=== PATIENT | male | born 1940 | race Caucasian/White ===

== ENCOUNTER → 2016-12-13 | Outpatient (CLI) | payer MEDICARE, BC ==
[2016-12-13 09:02] LABS: ALT 40 U/L (21-72); AST 34 U/L (17-59); Alkaline Phosphatase 89 U/L (38-126); Anion Gap 11 mmol/L; Blood Urea Nitrogen 19 mg/dL (9-20); Calcium 9.1 mg/dL (8.4-10.2); Carbon Dioxide 23 mmol/L (22-30); Chloride 110 mmol/L (98-107); Cholesterol 138 mg/dL (<200); Glucose 94 mg/dL (74-99); HDL Cholesterol 50 mg/dL (40-60); Non-African American GFR(MDRD) >60 (>60 ml/min/1.73 sqM); Potassium 4.7 mmol/L (3.5-5.1); Sodium 144 mmol/L (137-145); Total Bilirubin 0.9 mg/dL (0.2-1.3); Triglycerides 79 mg/dL (<150)
== END | disposition home or self-care (01) ==
LOC: LABWHC1 07:41
PROVIDERS: ATTEND Internal Medicine Cardiovascular Disease
DX: E78.5 Hyperlipidemia, unspecified (principal); I10 Essential (primary) hypertension
CPT/HCPCS: 36415; 80053; 80061

== ENCOUNTER → 2017-12-11 | Outpatient (CLI) | payer MEDICARE, BC ==
--- NOTE | 2017-12-11 15:45 | CT ---
EXAMINATION TYPE: CT chest wo/w con DATE OF EXAM: 12/11/2017 COMPARISON: NONE HISTORY: Other disorder of lung per order. (J 98.4) CT DLP: 1045 mGycm Automated exposure control for dose reduction was used. CONTRAST: CT scan of the chest is performed without and with IV Contrast, patient injected with 100 ml mL of Is ovue 300. FINDINGS: LUNGS: Moderate underlying emphysematous change is present most prominent in the apices. There is mil d to moderate pleural/parenchymal scarring bilaterally. There is some additional linear scarring cent rally in the right midlung. There is calcified 7 mm nodule or granuloma in the right lower lobe axial image 44. There is elevated left hemidiaphragm. There is bibasilar linear scarring and/or atelectasi s. No suspicious consolidation or groundglass opacity is seen. No pleural effusion or pneumothorax is noted. No suspicious noncalcified greater than 5 mm parenchymal nodule or mass is present. MEDIASTINUM: There are no greater than 1 cm noncalcified hilar or mediastinal lymph nodes. There are prominent but calcified right hilar and to lesser degree subcarinal lymph nodes. Coronary artery morgan cification is seen which is noted marker for coronary artery disease. Epicardial pacer wires are note d. No cardiomegaly or pericardial effusion is seen. OTHER: Scattered calcifications throughout the liver and more prominent in the spleen are present. L haris and CT findings are consistent with product of old granulomatous disease. There is nodular thicke bernadine to the left adrenal gland. Noncontrast CT shows Hounsfield units less than 10 consistent with li pid rich benign adenoma. Underlying S-shaped scoliosis is present. There is moderate multilevel spurr ing in the spine. IMPRESSION: Chronic emphysematous and other chronic changes without suspicious acute pulmonary proce ss.
== END | disposition home or self-care (01) ==
LOC: RADCTMAIN 12:08
PROVIDERS: ATTEND Internal Medicine Geriatric Medicine
DX: J43.9 Emphysema, unspecified (principal)
CPT/HCPCS: 71270; Q9967

== ENCOUNTER → 2019-03-07 | Outpatient (CLI) | payer MEDICARE, BC ==
--- NOTE | 2019-03-07 10:02 | MR ---
EXAMINATION TYPE: MR brain wo/w con DATE OF EXAM: 03/07/2019 COMPARISON: None HISTORY: CVA TECHNIQUE: Multiplanar, multisequence images of the brain and brainstem is performed without and with IV contras t, utilizing 7.5 mL intravenous Gadavist . FINDINGS: Diffusion weighted images demonstrate no evidence of a recent infarct or other diffusion ab normality. Osseous abnormal signal the sukhwinder suggestive of remote ischemia. Multifocal areas of abnormal signal a re seen involving the basal ganglia, thalamus and white matter which is in a nonspecific distribution pattern but most typical remote ischemic change. Midline structures demonstrate normal morphology. The craniocervical junction appears within normal limits. Post contrast images demonstrate no abnormal enhancement. The dural venous sinuses appear pa tent. A tiny venous angioma in the right frontal lobe incidentally noted. Changes of mild chronic sinusitis. Globes are intact. Mastoid air cells are clear. No cerebellopontin e angle mass. IMPRESSION: 1. Degenerative mild nonspecific white matter changes most typical remote ischemia. 2. Remote lacunar infarcts involving the sukhwinder, basal ganglia and thalamus. 3. No evidence of acute ischemia or mass effect.
== END | disposition home or self-care (01) ==
LOC: RADMRIMAIN 08:39
PROVIDERS: ATTEND Psychiatry & Neurology Neurology
DX: R90.89 Other abnormal findings on diagnostic imaging of central nervous system (principal)
CPT/HCPCS: 70553; A9585

== ENCOUNTER → 2019-04-17 | Outpatient (CLI) | payer MEDICARE, BC ==
--- NOTE | 2019-04-17 19:04 | NM ---
EXAMINATION TYPE: NM bone scan whole body DATE OF EXAM: 04/17/2019 COMPARISON: NONE HISTORY: C 67.9 Delayed whole-body scanning was performed following the injection of 26.8 mCi Tc 99m MDP. Images wer e acquired 3 hours post injection. FINDINGS: There is some focal uptake in the anterior left sixth rib region suggestive for underlying fracture. Metastatic lesion is within the differential. Within the left calvarium temporal region there is a focal area of increased uptake best visualized o n the spot images suspicious for metastatic lesion. Some uptake within the left hand likely is related to degenerative change. IMPRESSION: 1. There may be some focal uptake within the left temporal region as well as a anterior left sixth ri b. Metastasis should be considered. 2. Rib uptake may also be related to focal trauma.
== END | disposition home or self-care (01) ==
LOC: RADNMMAIN 10:00
PROVIDERS: ATTEND Urology
DX: C67.9 Malignant neoplasm of bladder, unspecified (principal); R93.7 Abnormal findings on diagnostic imaging of other parts of musculoskeletal system; Z88.7 Allergy status to serum and vaccine
CPT/HCPCS: 78306; A9503

== ENCOUNTER → 2019-05-20 | Outpatient (CLI) | payer MEDICARE, BC ==
--- NOTE | 2019-05-20 15:11 | XR ---
EXAMINATION TYPE: XR ribs LT DATE OF EXAM: 05/20/2019 COMPARISON: 04/17/2019 HISTORY: C 67.9 TECHNIQUE: 2 view left ribs. FINDINGS: No acute fractures are evident. No suspicious expansile lesions or erosions are evident. No sclerotic lesions are evident. Some costochondral cartilage calcification is present. No pneumothorax is evident. IMPRESSION: 1. Normal left ribs. 2. No suspicious abnormality to correlate with the anterior left external finding from bone scan. Thi s suggests trauma likely within the differential at this location.
--- NOTE | 2019-05-20 15:21 | XR ---
EXAMINATION TYPE: XR skull limited DATE OF EXAM: 05/20/2019 COMPARISON: Bone scan 04/17/2019 HISTORY: C 67.9 bladder cancer TECHNIQUE: 2 view skull FINDINGS: Skull is examined in AP and lateral projections. Subtle patchy diminished density is present through the left calvarium corresponding to the bone scan . Findings could be related to a metastatic lesion. A well-defined lytic lesion is not identified. Remainder the calvarium appears intact. IMPRESSION: 1. Ill-defined moth-eaten appearance to the left calvarium could be related to a metastatic lesion i dentified on bone scan.
== END | disposition home or self-care (01) ==
LOC: RADXRMAIN 11:24
PROVIDERS: ATTEND Urology
DX: C67.9 Malignant neoplasm of bladder, unspecified (principal); Z88.7 Allergy status to serum and vaccine
CPT/HCPCS: 70250

== ENCOUNTER → 2019-06-13 | Outpatient (CLI) | payer MEDICARE, BC ==
--- NOTE | 2019-06-15 11:34 | PE ---
Nuclear medicine PET/CT HISTORY: Bladder carcinoma, initial Patient received 11.4 mCi F-18 FDG intravenously in delayed scanning was performed from the skull bas e to the mid thighs. Localization and attenuation correction CT scan was performed. Correlation to bone scan dated 04/17/2019, CT urogram 02/27/2016 Neck and chest: There is no evident cervical, supraclavicular, mediastinal, axillary, or hilar adenop athy. Calcified nodes in the subcarinal, right hilar location are present. There are coronary artery calcifications present. Calcified nodule present in the right lower lobe. There is some White leads i n the right lower chest extending to the inferior cardiac margin. No pleural or pericardial effusion. No suspicious hypermetabolic uptake. ABDOMEN: Multiple calcifications within the liver and spleen suggesting old granulomatous disease. De pendent high density foci in the gallbladder compatible with stones. No retroperitoneal adenopathy. I nfrarenal abdominal aortic aneurysm with stent graft placement is noted, the aneurysm measures approx imately 5.3 cm in greatest dimension, slightly enlarged compared to prior CT urogram of 02/27/2016 when it measured I centimeters. Suspect there may be hydroceles in the scrotum. Postop changes are noted to the right groin. Bladder uptake may obscure underlying detail. Osseous structures: The proximal right humerus shows abnormal increased uptake with some questionable sclerosis, SUV 4.2, uptake appears somewhat increased compared to prior bone scan. Distal clavicle o n the right also shows some mild increased uptake, SUV 2.4. Facet arthropathy change, degenerative di sc changes in the lower spine. There is a focus of sclerosis present within the right iliac wing whic h may represent bone island, no associated hypermetabolic uptake. IMPRESSION: Proximal humerus abnormal uptake is suspicious and could possibly represent metastatic fo cus.
== END | disposition home or self-care (01) ==
LOC: RADPETMAIN 11:53
PROVIDERS: ATTEND Internal Medicine Hematology & Oncology
DX: C67.8 Malignant neoplasm of overlapping sites of bladder (principal)
CPT/HCPCS: 78815; A9552

== ENCOUNTER → 2019-06-18 | Outpatient (CLI) | payer MEDICARE, BC ==
--- NOTE | 2019-06-19 04:08 | MR ---
EXAMINATION TYPE: MR humerus RT w/wo con DATE OF EXAM: 06/18/2019 COMPARISON: HISTORY: Bladder cancer, abnormal PET CT CONTRAST: Standard multiplanar, multisequence MRI departmental protocol utilizing 8 mL intravenous Gadavist jacinda olinium contrast. FINDINGS: There is a 4 x 3.7 cm area of abnormal decreased signal on the T1 images involving the prox imal humeral metaphysis. I do not see a soft tissue mass. The cortex appears intact. There is mild pa thologic enhancement. I see no fracture line. The glenohumeral joint is intact. Biceps tendon is inta ct. The subscapularis tendon is intact. Visualized scapula is intact. IMPRESSION: Large lesion in the proximal humeral metaphysis with some enhancement that is consistent with metasta tic disease. No change in size compared to the PET CT scan of 06/13/2019. No evidence of adjacent sof t tissue mass.
== END | disposition home or self-care (01) ==
LOC: RADMRIMAIN 15:09
PROVIDERS: ATTEND Internal Medicine Hematology & Oncology
DX: C67.9 Malignant neoplasm of bladder, unspecified (principal); M89.9 Disorder of bone, unspecified
CPT/HCPCS: 73220; A9585

== ENCOUNTER → 2019-09-14 | Outpatient (CLI) | payer MEDICARE, BC ==
--- NOTE | 2019-09-14 16:08 | CT ---
EXAMINATION TYPE: CT abdomen pelvis w con DATE OF EXAM: 09/14/2019 COMPARISON: 12/11/2017 HISTORY: bladder ca followup CT DLP: 791 mGycm CONTRAST: CT scan of the abdomen and pelvis is performed with Oral Contrast and with IV Contrast, patient injec gina with 100 mL of Isovue 300. FINDINGS: LUNG BASES-: No visible nodule. No infiltrate. LIVER/GB: Multiple small gallstones noted. No space occupying hepatic lesion. Biliary tree is of n ormal caliber. PANCREAS: No inflammation. No distinct mass. SPLEEN: No splenic enlargement. No lesion seen. Splenic granulomas identified. ADRENALS: No nodule. Adrenal glandular thickening again noted. KIDNEYS/BLADDER: No hydronephrosis. No nephrolithiasis. No distinct renal mass. Urinary bladder g rossly unremarkable. BOWEL: Normal appendix. Normal bowel caliber. No inflammation. GENITAL ORGANS: No gross abnormality. LYMPH NODES: No greater than 1cm abdominal or pelvic lymph nodes are appreciated. AORTA: Aortic stent graft in place. No evidence for endoleak. [place] aneurysm measures 4.2 cm AP dime nsion. OSSEOUS STRUCTURES: Severe degenerative changes lumbar spine with vacuum disc seen. OTHER: No significant additional abnormality is seen. IMPRESSION: 1. No CT evidence to suggest metastatic disease to the abdomen or pelvis at this time.
== END | disposition home or self-care (01) ==
LOC: RADCTMAIN 13:45
PROVIDERS: ATTEND Internal Medicine Hematology & Oncology
DX: C67.9 Malignant neoplasm of bladder, unspecified (principal)
CPT/HCPCS: 82565; 84520; 74177; 36415; Q9967

== ENCOUNTER → 2019-11-06 | Outpatient (CLI) | payer MEDICARE, BC ==
--- NOTE | 2019-11-06 13:14 | US ---
EXAMINATION TYPE: US venous doppler duplex LE RT DATE OF EXAM: 11/06/2019 12:49 PM COMPARISON: NONE CLINICAL HISTORY: R22.41 Swelling of right lower limb. Pain right leg SIDE PERFORMED: right TECHNIQUE: The lower extremity deep venous system is examined utilizing real time linear array sonog manasa with graded compression, doppler sonography and color-flow sonography. VESSELS IMAGED: External Iliac Vein (EIV) Common Femoral Vein Deep Femoral Vein Greater Saphenous Vein * Femoral Vein Popliteal Vein Small Saphenous Vein * Proximal Calf Veins (* superficial vessels) Grayscale, color doppler, spectral doppler imaging performed of the deep veins of the right lower ext remity. There is normal flow, compressibility, vascular waveforms. Right Leg: No evidence of DVT as visualized IMPRESSION: No sonographic evidence of deep venous thrombosis within the right lower extremity.
--- NOTE | 2019-11-06 13:26 | XR ---
EXAMINATION TYPE: XR chest 2V DATE OF EXAM: 11/06/2019 COMPARISON: Left ribs of 05/20/2019 and PET/CT dated 06/13/2019 HISTORY: Cough and lower extremity swelling TECHNIQUE: Frontal and lateral views of the chest are obtained. FINDINGS: Pulmonary hyperinflation is present throughout the lungs. Linear strand-like infrahilar de nsities along the vasculature likely relate to mild dependent atelectasis also seen on the lateral vi ew. Calcified granuloma is seen in the right lower lung. Cardiomediastinal silhouette is within luh l limits. Minimal degenerative change of the thoracic spine. IMPRESSION: Bibasilar linear airspace seen on the lateral and frontal view likely relates to atelect asis however developing pneumonia is possible in the appropriate clinical setting. Underlying COPD.
== END | disposition home or self-care (01) ==
LOC: RADUSWWP 12:21
PROVIDERS: ATTEND Internal Medicine Hematology & Oncology
DX: J44.9 Chronic obstructive pulmonary disease, unspecified (principal); R22.41 Localized swelling, mass and lump, right lower limb; C67.9 Malignant neoplasm of bladder, unspecified
CPT/HCPCS: 71046

== ENCOUNTER → 2019-12-14 | Outpatient (CLI) | payer MEDICARE, BC | END | disposition home or self-care (01) | LOC: LABWHC1 11:27 | PROVIDERS: ATTEND Internal Medicine Critical Care Medicine | DX: U07.1 COVID-19 (principal) | CPT/HCPCS: 87635 ==

== ENCOUNTER → 2019-12-16 | Day surgery (SDC) | payer MEDICARE, BC ==
[2019-12-15 14:20] VITALS: BMI 22.4
[~2019-12-16] MED LIST: ALBUTEROL NEB (CONC) 2.5 MG/0.5 ML INHALATION ONE; DEXAMETHASONE SOD PHOSPHATE 10 MG/ML 1 ML VIAL IV ONE; IV FLUID CONTINUATION 1,000 ML IV ONE; LACTATED RINGERS 1,000 ML IV SCH; LIDOCAINE 1% INJ 10MG/ML (20 ML MDV) ONE; LIDOCAINE 2% (PF) 20 MG/ML 5 ML VIAL INHALATION ONE; LIDOCAINE VISCOUS 300 MG/15 ML CUP MUCOUS MEM ONE; MIDAZOLAM 2 MG/2 ML VIAL ONE; ONDANSETRON 4 MG/2 ML VIAL IVP ONE; PROPOFOL 10 MG/ML 20 ML VIAL IV ONE; SODIUM CHLORIDE 0.9% 1,000 ML IV SCH; SODIUM CHLORIDE 0.9% 500 ML 500 ML IV ONE; SUCCINYLCHOLINE CHLORIDE 100 MG/5 ML SYR IV ONE; fentaNYL (PF) 50 MCG/ML 2 ML AMP ONE
--- NOTE | 2019-12-16 11:55 | CT ---
EXAMINATION TYPE: CT Chest tara Atkinson Protocol DATE OF EXAM: 12/16/2019 COMPARISON: Outside CT dated December 08, 2019. Prior PET/CT June 13, 2019 HISTORY: Navigational bronch. CT DLP: 687 mGycm Automated exposure control for dose reduction was used. FINDINGS: Exam is for bronchoscopy planning and not for diagnostic purposes. Background moderate to advanced un derlying emphysematous change redemonstrated along with elevated left hemidiaphragm. New suspicious m ass or masslike consolidation in the right midlung anteriorly is redemonstrated. Incidental roughly 1 cm calcified nodule or benign granuloma right lower lobe axial image 50 series 6 with calcified righ t hilar adenopathy. Anterior percutaneous epicardial pacer wires. Partial visualization of aortobiili ac stent graft. Punctate calcifications throughout the spleen and to lesser degree liver. IMPRESSION: As above.
--- NOTE | 2019-12-16 14:29 | P.PCN ---
Date of Procedure: 12/16/19 Preoperative Diagnosis: RML/RUL mass/atelectasis Postoperative Diagnosis: Right middle lobe bronchus obstruction Procedure(s) Performed: Navigational Flexible bronchoscopy, airway inspection, transbronchial biopsies of the right upper lobe, transbronchial biopsies of the right middle lobe, transbronchial brushings of the right middle lobe, bronchoalveolar lavage of the right upper lobe and the right middle lobe, transbronchial needle aspirate of paratracheal lymph node Anesthesia: CAROLINEA Surgeon: Sheila Chau Estimated Blood Loss (ml): 5 Pathology: other Condition: stable Disposition: same day Operative Findings: This procedure was done under general anesthesia. The patient was intubated and placed on a mechanical ventilator by DELIVERY PROFESSIONAL. The procedure was done while the patient is adequately oxygenated and ventilated. Note that this is a navigational bronchoscopy. A CAT scan of the chest was done using the [facility] protocol and the CAT scan images was uploaded system where the right upper lobe and the right middle lobe lesions were adequately identified at a target lesions were marked and the mapping was performed. This was done preoperatively. All this information was uploaded into the [facility] navigational ptower. The V pad was applied to the patient's chest. After achieving adequate anesthesia, the flexible bronchoscope was inserted to the endotracheal tube and was transferred to the lower trachea. The distal tip of the orotracheal tube was seen about 2 cm above the viktor. The viktor was sharp in the midline. Airway inspection was done. Examination of the right and occluded right mainstem bronchus was patent. The flexible bronchoscope was then taken to the right upper lobe bronchus where that the segment of the right upper lobe bronchus was visualized including the apical anterior and the posterior segment. Following that, the bronchoscope was moved to the bronchus intermedius. The right middle lobe bronchus was extrinsically compressed and I was unable to insert my bronchoscope into the right middle lobe bronchus. There could have been some irregularities at the orifice and right lower lobe bronchus was patent and the 5 different segments of the right lower lobe including the medial basilar, the anterior, lateral, posterior and superior segments were all patent and within normal limits. The bronchoscope was then moved to the left side and exertion left-sided low the left mainstem bronchus, left upper lobe bronchus, left lower lobe bronchus and all of these airways were patent and within normal limits. The bronchoscope was then moved to the main trachea and other navigational guidance, transbronchial needle aspirate of the paratracheal lymph node was done using a 19-gauge cytology needle. Several passes were obtained. Following that, the bronchoscope was moved to the right upper lobe and transbronchial biopsies of the right upper lobe mass/consolidation was done under navigational guidance. A bronchoalveolar lavage of the right upper lobe with elevated total of 60 the fluid was infused and 20 mL of bloody aspirate was obtained. The bronchoscope was then moved to the right middle lobe bronchus and transbronchial biopsies of the right middle lobe bronchus consolidation/lesion was done under navigational guidance. I also performed a bronchoalveolar lavage of the right middle lobe and using 60 mL and aspirating 20 mL from the right middle lobe. Ultimately I performed also in the bronchial brushings of the right middle lobe under navigational guidance. The patient tolerated the procedure well. At the completion of the procedure, the respiratory secretions were all suctioned out. The patient was extubated and transferred to recovery in stable condition. The chest x-ray will be done to rule out pneumothorax. The patient will be discharged home once cleared by anesthesia. I will follow-up on the results and contact the patient back to discuss the results of the findings.
[2019-12-16 14:47] VITALS: TEMP 97.5
--- NOTE | 2019-12-16 14:58 | XR ---
EXAMINATION TYPE: XR chest 1V DATE OF EXAM: 12/16/2019 COMPARISON: Chest x-ray November 06, 2019. CT chest December 11, 2017. Same day planning CT. HISTORY: Bronchoscopy with right lung biopsy. TECHNIQUE: Single frontal view of the chest is obtained. FINDINGS: There is chronic emphysematous and parenchymal change bilaterally with right midlung massl tito consolidation redemonstrated. No right-sided pneumothorax after bronchoscopy and sampling. Cardia c silhouette size stable and upper limits of normal with atherosclerotic aorta. Calcified granuloma r ight lung base redemonstrated. Osseous structures redemonstrated demineralized. IMPRESSION: No pneumothorax after bronchoscopy and right lung sampling.
[2019-12-16 15:06] VITALS: RESP 17
[2019-12-16 15:12] VITALS: BP 106/59; PULSE 69
== END ==
LOC: ORWHC2ENDO 10:25
PROVIDERS: ATTEND Internal Medicine Critical Care Medicine
DX: J40 Bronchitis, not specified as acute or chronic (principal); J84.10 Pulmonary fibrosis, unspecified; E78.5 Hyperlipidemia, unspecified; F03.90 Unspecified dementia, unspecified severity, without behavioral disturbance, psychotic disturbance, mood disturbance, and anxiety; R41.3 Other amnesia; Z98.890 Other specified postprocedural states; I10 Essential (primary) hypertension; Z92.21 Personal history of antineoplastic chemotherapy; Z85.51 Personal history of malignant neoplasm of bladder; Z95.1 Presence of aortocoronary bypass graft; R60.0 Localized edema; Z80.41 Family history of malignant neoplasm of ovary; Z87.891 Personal history of nicotine dependence; Z79.899 Other long term (current) drug therapy; Z91.09 Other allergy status, other than to drugs and biological substances
CPT/HCPCS: 87798 ×3; 87496; 87498; 87529; 88104; 88108; 88305; 88173; 87252; 87502; 87634; 87070; 87205; 87116; 87102; 87206; 71045; 71250; 31628; 31629; 31632; 31623; 31624; 31627; J2250; J1100; J2405; J2001; J3010; J0330; J2704; 31625; 31633

== ENCOUNTER 2019-12-20 12:24 | Inpatient (IN) | payer MEDICARE, BC ==
[2019-12-20] MEDS ORDERED: ACETAMINOPHEN TAB 325 MG TAB PO STA (13:12)
--- NOTE | 2019-12-20 13:16 | XR ---
EXAMINATION TYPE: XR chest 1V portable DATE OF EXAM: 12/20/2019 COMPARISON: 12/16/2019 HISTORY: Shortness of breath and cough TECHNIQUE: Single frontal view of the chest is obtained. FINDINGS: Worsening of the confluent right suprahilar, right perihilar and right infrahilar opacity does not extend to the right lung periphery. Left lung remains overall well aerated. Chronic emphysem atous changes are again noted. Diffuse osseous demineralization is seen. Overall stable size of the c ardiomediastinal silhouette. IMPRESSION: Worsening large right-sided opacity, pneumonia versus neoplasm. Correlate with recent br onchoscopy results.
[2019-12-20 13:19] LABS: Basophils % (A) 0 %; Eosinophils % (A) 0 %; HCT 35.3 % (39.0-53.0); HGB 11.3 gm/dL (13.0-17.5); Hypochromasia Slight; Lymphocytes # (A) 0.4 k/uL (1.0-4.8); Lymphocytes % (A) 2 %; MCH 30.4 pg (25.0-35.0); MCHC 31.9 g/dL (31.0-37.0); MCV 95.4 fL (80.0-100.0); Mean Platelet Volume 8.4; Monocytes # (A) 0.8 k/uL (0-1.0); Monocytes % (A) 4 %; Neutrophils # (A) 22.6 k/uL (1.3-7.7); Neutrophils % (A) 94 %; Platelet Count 384 k/uL (150-450); RDW 14.4 % (11.5-15.5)
[2019-12-20 13:25] LABS: ALT 173 U/L (4-49); AST 119 U/L (17-59); African American GFR (CKD) >90 (>60 ml/min/1.73 sqM); Albumin 2.7 g/dL (3.5-5.0); Alkaline Phosphatase 291 U/L (38-126); Anion Gap 10 mmol/L; Blood Urea Nitrogen 24 mg/dL (9-20); Calcium 7.9 mg/dL (8.4-10.2); Carbon Dioxide 24 mmol/L (22-30); Chloride 103 mmol/L (98-107); Glucose 133 mg/dL (74-99); Non-African American GFR(CKD) 84 (>60 ml/min/1.73 sqM); Potassium 4.3 mmol/L (3.5-5.1); Sodium 137 mmol/L (137-145); Total Bilirubin 0.7 mg/dL (0.2-1.3); Total Protein 5.6 g/dL (6.3-8.2)
--- NOTE | 2019-12-20 13:30 | ED ---
SOB HPI - General Chief Complaint: Shortness of Breath Stated Complaint: Weakness,cough-post op Time Seen by Provider: 12/20/19 12:30 Source: patient Mode of arrival: wheelchair Limitations: no limitations - History of Present Illness Initial Comments: The patient is a 79-year-old male past medical history of dementia presents emergency room with reported shortness of breath. The patient was found to have a lung mass which was biopsied on Saturday by Dr. Chau. reports that since then the patient has been extremely weak and more short of breath. She was unable to ambulate today. She also reports to dementia however the patient is confused. Denies hemoptysis but does admit to increased cough without sputum production. She also admits to chills which developed today. The patient denies any chest pain. No ripping or tearing sensation to his back. Denies a history of DVT or PE. Does admit to worsening lower trauma swelling. Patient is not on any anticoagulation. There are no other alleviating, precipitating or modifying factors - Related Data Home Medications Medication Instructions Recorded Confirmed Donepezil [Aricept] 10 mg PO DAILY 12/20/19 12/20/19 Memantine [Namenda] 10 mg PO BID 12/20/19 12/20/19 Allergies Allergy/AdvReac Type Severity Reaction Status Date / Time adhesive Allergy tape Verified 12/20/19 12:31 pulled skin off Review of Systems ROS Statement: Those systems with pertinent positive or pertinent negative responses have been documented in the HPI. ROS Other: All systems not noted in ROS Statement are negative. Past Medical History Past Medical History: Cancer, Dementia, Hyperlipidemia, Hypertension, Memory Impairment, Osteoarthritis (OA), Pneumonia Additional Past Medical History / Comment(s): VARICOSE VEINS, LIMITED ROM IN NECK DUE TO CERVICAL SURGERY, hasn't take BP med in a long time, hx. 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 @[place], aortic aneurysm repair Past Anesthesia/Blood Transfusion Reactions: Previous Problems w/ Anesthesia Additional Past Anesthesia/Blood Transfusion Reaction / Comment(s): SPOUSE STATES DIFFICULTY WAKING , ALSO THEY NEEDED TO USE A SMALLER TUBE IN HIS THROAT DUE TO HX OF CERVICAL SURGERY AND LIMITED ROM IN NECK. Past Psychological History: No Psychological Hx Reported Smoking Status: Former smoker Past Alcohol Use History: None Reported Past Drug Use History: None Reported - Past Family History Sister(s) Family Medical History: Deep Vein Thrombosis (DVT), Pulmonary Embolus Mother Family Medical History: Cancer Additional Family Medical History / Comment(s): CERVICAL General Exam Limitations: no limitations General appearance: alert, in no apparent distress Head exam: Present: atraumatic, normocephalic, normal inspection Eye exam: Present: normal appearance, PERRL, EOMI. Absent: scleral icterus, conjunctival injection, periorbital swelling ENT exam: Present: normal exam, mucous membranes moist Neck exam: Present: normal inspection. Absent: tenderness, meningismus, lymphadenopathy Respiratory exam: Present: wheezes. Absent: respiratory distress, rales, rhonchi, stridor Cardiovascular Exam: Present: regular rate, normal rhythm, normal heart sounds. Absent: systolic murmur, diastolic murmur, rubs, gallop, clicks GI/Abdominal exam: Present: soft, normal bowel sounds. Absent: distended, tenderness, guarding, rebound, rigid Extremities exam: Present: normal inspection, full ROM, normal capillary refill. Absent: tenderness, pedal edema, joint swelling, calf tenderness Back exam: Present: normal inspection Neurological exam: Present: alert, oriented X3, CN II-XII intact Psychiatric exam: Present: normal affect, normal mood Skin exam: Present: warm, dry, intact, normal color. Absent: rash Course Vital Signs 12/20/19 12/20/19 12/20/19 12:29 12:45 16:03 Temperature 98.7 F 100.5 F H Pulse Rate 76 76 Respiratory 18 16 Rate Blood Pressure 112/70 103/78 O2 Sat by Pulse 92 L 99 Oximetry Medical Decision Making - Medical Decision Making Upon arrival the patient is placed into room 4. A thorough history and physical exam is performed. A portal chest is performed because the patient is status post lung biopsy to look for pneumothorax. Chest x-ray does demonstrate worsening large right-sided opacity pneumonia versus neoplasm. Peripheral IV was established. Laboratory studies were conducted. Does demonstrate a leukocytosis of 24,000. D-dimer is elevated 3.6. BNP elevated at 2310. He has elevated serum the patient is sent over for a CT of his chest which demonstrates no PE however there is tracheal and bronchial debris secondary related hemoptysis, postbiopsy blood products respiration. Large right upper lobe and right middle lobe masslike toleration for which recent bronchoscopy was performed and has increased in interval suggesting a degree of pulmonary hemorrhage and/or postprocedural infection. Blood cultures were obtained. The patient was initiated on Zosyn and Vanco. I did not fluid resuscitated the patient as he are he has lower extremity swelling an elevated BNP. I discussed the diagnosis, differential diagnosis. I recommended hospital admission for the patient did agree to. Discussed the case with Dr. Ramires who accepted admission. Dr. Wells will be placed on consult. Patient was then transferred to floor in stable condition - Lab Data Result diagrams: 12/22/19 08:03 12/22/19 08:03 Lab Results 12/20/19 12/20/19 12/20/19 Range/Units 12:52 12:52 12:52 WBC 24.0 H (3.8-10.6) k/uL RBC 3.70 L (4.30-5.90) m/uL Hgb 11.3 L (13.0-17.5) gm/dL Hct 35.3 L (39.0-53.0) % MCV 95.4 (80.0-100.0) fL MCH 30.4 (25.0-35.0) pg MCHC 31.9 (31.0-37.0) g/dL RDW 14.4 (11.5-15.5) % Plt Count 384 (150-450) k/uL Neutrophils % 94 % Lymphocytes % 2 % Monocytes % 4 % Eosinophils % 0 % Basophils % 0 % Neutrophils # 22.6 H (1.3-7.7) k/uL Lymphocytes # 0.4 L (1.0-4.8) k/uL Monocytes # 0.8 (0-1.0) k/uL Eosinophils # 0.0 (0-0.7) k/uL Basophils # 0.0 (0-0.2) k/uL Hypochromasia Slight PT 11.3 (9.0-12.0) sec INR 1.1 (<1.2) APTT 24.3 (22.0-30.0) sec D-Dimer 3.63 H (<0.60) mg/L FEU Sodium 137 (137-145) mmol/L Potassium 4.3 (3.5-5.1) mmol/L Chloride 103 (98-107) mmol/L Carbon Dioxide 24 (22-30) mmol/L Anion Gap 10 mmol/L BUN 24 H (9-20) mg/dL Creatinine 0.82 (0.66-1.25) mg/dL Est GFR (CKD-EPI)AfAm >90 (>60 ml/min/1.73 sqM) Est GFR (CKD-EPI)NonAf 84 (>60 ml/min/1.73 sqM) Glucose 133 H (74-99) mg/dL Plasma Lactic Acid Steve (0.7-2.0) mmol/L Calcium 7.9 L (8.4-10.2) mg/dL Magnesium 2.0 (1.6-2.3) mg/dL Total Bilirubin 0.7 (0.2-1.3) mg/dL AST 119 H (17-59) U/L ALT 173 H (4-49) U/L Alkaline Phosphatase 291 H (38-126) U/L Troponin I (0.000-0.034) ng/mL NT-Pro-B Natriuret Pep pg/mL Total Protein 5.6 L (6.3-8.2) g/dL Albumin 2.7 L (3.5-5.0) g/dL 12/20/19 12/20/19 12/20/19 Range/Units 12:52 12:52 12:52 WBC (3.8-10.6) k/uL RBC (4.30-5.90) m/uL Hgb (13.0-17.5) gm/dL Hct (39.0-53.0) % MCV (80.0-100.0) fL MCH (25.0-35.0) pg MCHC (31.0-37.0) g/dL RDW (11.5-15.5) % Plt Count (150-450) k/uL Neutrophils % % Lymphocytes % % Monocytes % % Eosinophils % % Basophils % % Neutrophils # (1.3-7.7) k/uL Lymphocytes # (1.0-4.8) k/uL Monocytes # (0-1.0) k/uL Eosinophils # (0-0.7) k/uL Basophils # (0-0.2) k/uL Hypochromasia PT (9.0-12.0) sec INR (<1.2) APTT (22.0-30.0) sec D-Dimer (<0.60) mg/L FEU Sodium (137-145) mmol/L Potassium (3.5-5.1) mmol/L Chloride (98-107) mmol/L Carbon Dioxide (22-30) mmol/L Anion Gap mmol/L BUN (9-20) mg/dL Creatinine (0.66-1.25) mg/dL Est GFR (CKD-EPI)AfAm (>60 ml/min/1.73 sqM) Est GFR (CKD-EPI)NonAf (>60 ml/min/1.73 sqM) Glucose (74-99) mg/dL Plasma Lactic Acid Steve 1.6 (0.7-2.0) mmol/L Calcium (8.4-10.2) mg/dL Magnesium (1.6-2.3) mg/dL Total Bilirubin (0.2-1.3) mg/dL AST (17-59) U/L ALT (4-49) U/L Alkaline Phosphatase (38-126) U/L Troponin I <0.012 (0.000-0.034) ng/mL NT-Pro-B Natriuret Pep 2310 pg/mL Total Protein (6.3-8.2) g/dL Albumin (3.5-5.0) g/dL - EKG Data EKG Comments: EKG demonstrates a normal sinus rhythm with a ventricular rate of 73. AK interval 150. QRS 82. QTC of 445. No acute ST segment elevations or depressions concerning for ischemic changes Disposition Clinical Impression: Mass of upper lobe of right lung, Mass of middle lobe of right lung, SIRS (systemic inflammatory response syndrome), History of lung biopsy, Leukocytosis, Pneumonia Disposition: ADMITTED IP TO THIS [facility] Condition: Stable Is patient prescribed a controlled substance at d/c from ED?: No Decision to Admit Reason: Admit from EC Decision Date: 12/20/19 Decision Time: 15:21
[2019-12-20 13:33] LABS: INR 1.1 (<1.2); Partial Thromboplastin Time 24.3 sec (22.0-30.0); Prothrombin Time 11.3 sec (9.0-12.0)
[2019-12-20 13:37] LABS: D-Dimer 3.63 mg/L FEU (<0.60)
[2019-12-20] MEDS ORDERED: PIPERACILLIN-TAZOBACTAM 3.375 GM in SODIUM CHLORIDE 0.9% 100 ML IVPB STA (13:38)
[2019-12-20] MEDS ORDERED: VANCOMYCIN IV PER PHARMACY 1 EACH MISC MISCELLANE PRN (13:38)
[2019-12-20] MEDS ORDERED: VANCOMYCIN 1,250 MG in SODIUM CHLORIDE 0.9% 250 ML IVPB STA (13:44)
--- NOTE | 2019-12-20 14:47 | CT ---
EXAMINATION TYPE: CT angio chest DATE OF EXAM: 12/20/2019 COMPARISON: Chest x-ray dated 12/20/[address] dated 12/11/2017 HISTORY: Elevated d-dimer, shortness of breath. CT DLP: 362.8 mGycm. Automated Exposure Control for Dose Reduction was Utilized. CONTRAST: CTA scan of the thorax is performed with IV Contrast, patient injected with 100 mL of Isovue 370, pul monary embolism protocol. MIP Images are created on CT scanner and reviewed. FINDINGS: LUNGS: Left hemidiaphragm elevation. Calcified benign granuloma at the right lung base and in the lef t upper lobe. Severe emphysematous changes of the lungs are seen. There is a large right upper lobe a nd right middle lobe opacity with interspersed areas of aerated emphysematous lung and atelectasis in the right middle lobe. The size of the consolidation has markedly enlarged from the prior of 12/16/19 with greatest change in the right upper lobe. Debris is seen along bronchi of the medial right mid dle lobe. Honeycombing in the right lower lobe medially is indicative of degree of fibrosis. Fibrotic changes and atelectasis are seen in the lung bases. Tracheal debris is noted on image 31. It is also seen in image 39. MEDIASTINUM: There is suboptimal enhancement of the pulmonary artery and its branches, as there is eq uivalent contrast in the aorta and main pulmonary artery. Enlarged right hilar adenopathy measures 1. 2 cm in short axis on image 79. Mediastinal and hilar granulomas are benign. No cardiomegaly. Trace pericardial effusion. OTHER: Numerous splenic granulomas are benign. There is thickening of the left adrenal gland suboptim ally evaluated given the phase of arterial contrast. Thickening of the right adrenal gland is also se en. Aortic stent is partially visualized in the upper abdominal aorta. Cortical calcification of the left kidney incidentally seen. Benign granulomas of the hepatic parenchyma. Mild to moderate degenera tive change of the visualized spine. Indeterminant sclerotic focus of T10. This appears unchanged 2017 and may represent a bone island. IMPRESSION: 1. No CT evidence of pulmonary embolism despite slight suboptimal evaluation of the subsegmental pulm onary emboli given bolus timing. 2. Tracheal and bronchial debris that could relate to hemoptysis, post biopsy blood products, or aspi ration. 3. Large right upper lobe and right middle lobe masslike consolidation for which recent bronchoscopy was performed this has increased in the interval suggesting a degree of pulmonary hemorrhage and or p ostprocedural infection. 4. Indeterminate thickening of the adrenal glands.
[2019-12-20] MEDS ORDERED: NALOXONE 0.4 MG/ML 1 ML VIAL IV PRN (15:21)
--- NOTE | 2019-12-20 21:30 | P.HPIM ---
History of Present Illness H&P Date: 12/20/19 Chief Complaint: Fever and chills, altered mental status, aspiration pneumonia, recent diagn 79-year-old male one of my office patient with past medical history of bladder cancer with resection, history of hypertension hyperlipidemia and memory impairment who has been seen Dr. Pichardo oncology and chest x-ray over a month ago showed slight pneumonia CAT scan of the chest showed large mass in the right upper and middle area of the lung patient was diagnosed with possible lung cancer was referred to Dr. Chau and had bronchoscopy this past week results still pending the patient continued to have hemoptysis all along. Patient developed to have severe fatigue tiredness and generalized weakness not been able template and walk mild altered mental status with worsening cough worsening shortness of breath his cough was impenetrable ended up calling 911 ended up having hypoxia with temperature of 102 over to the emergency department at [facility] where was seen and evaluated found to have mass in the right side d-dimer was elevated CAT scan was performed and showed mass in the right upper and middle lobe with a debridement most likely from aspiration pneumonia. Patient white blood cell was quite bit elevated and had significant abnormal liver function test. Was started on gram-negative coverage was giving Zosyn and Levaquin oxygen was started will consult pulmonary and oncology and admit patient to the hospital for the above problem. Review of Systems CONSTITUTIONAL: Well-developed no acute respiratory distress. Mildly confuse and slight dyspnea. EYES: No icterus sclerae, no conjunctivitis. EARS, NOSE, MOUTH, THROAT, and FACE: No sore throat, lymphadenopathy, carotid bruits or deformity. RESPIRATORY: Significant cough wheezes and hemoptysis. CARDIOVASCULAR: No CP, Palpitation, PND, Orthopnea, or angina. GASTROINTESTINAL: No Abd pain, Nausea or vomiting, no Diarrhea or constipation, No GI Bleed, no distention or masses. GENITOURINARY: Negative for Hematuria or UTI, no kidney stones. INTEGUMENT/BREAST: Negative for any muscular injury with mild osteoarthritis.. HEMATOLOGIC/LYMPHATIC: Negative for bleed or purpura. MUSCULOSKELTAL: Negative for Myalgia or arthralgia. NEURLOGICAL: No LOC, Sz or syncope, blurred vision dizziness or abnormality.. Generalized fatigue abnormal balance and significant memory loss. BEHAVIORAL/PSYCH: Abnormal memory loss and dementia. ENDOCRINE: Negative. Past Medical History Past Medical History: Cancer, Dementia, Hyperlipidemia, Hypertension, Memory Impairment, Osteoarthritis (OA), Pneumonia Additional Past Medical History / Comment(s): VARICOSE VEINS, LIMITED ROM IN NECK DUE TO CERVICAL SURGERY,, hx. 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 @[place], aortic aneurysm repair Past Anesthesia/Blood Transfusion Reactions: Previous Problems w/ Anesthesia Additional Past Anesthesia/Blood Transfusion Reaction / Comment(s): SPOUSE STATES DIFFICULTY WAKING , ALSO THEY NEEDED TO USE A SMALLER TUBE IN HIS THROAT DUE TO HX OF CERVICAL SURGERY AND LIMITED ROM IN NECK. Past Psychological History: No Psychological Hx Reported Smoking Status: Former smoker Past Alcohol Use History: None Reported Additional Past Alcohol Use History / Comment(s): quit smoking 20-25 yrs. ago, spouse doen'st know how long or how much he smoked Past Drug Use History: None Reported - Past Family History Sister(s) Family Medical History: Deep Vein Thrombosis (DVT), Pulmonary Embolus Mother Family Medical History: Cancer, Pneumonia Additional Family Medical History / Comment(s): CERVICAL Medications and Allergies Home Medications Medication Instructions Recorded Confirmed Type Donepezil [Aricept] 10 mg PO DAILY 12/20/19 12/20/19 History Memantine [Namenda] 10 mg PO BID 12/20/19 12/20/19 History Allergies Allergy/AdvReac Type Severity Reaction Status Date / Time adhesive Allergy tape Verified 12/20/19 12:31 pulled skin off Physical Exam Vitals: Vital Signs Temp Pulse Pulse Resp BP BP Pulse Ox 12/20/19 20:00 98.5 F 77 18 101/52 94 L 12/20/19 17:34 97.6 F 80 16 95/55 94 L 12/20/19 16:03 76 16 103/78 99 12/20/19 12:45 100.5 F H 12/20/19 12:29 98.7 F 76 18 112/70 92 L Intake and Output 12/20/19 12/20/19 12/20/19 06:59 14:59 22:59 Other: Weight 76.204 kg 76.204 kg General Appearance: Alert, cooperative, mild distress, appears stated age. Neck HEENT: Supple, no lymphadenopathy, no thyroid enlargement, no carotid bruits. Lungs: Decreased breath sound bilaterally specially right side the final rhonchi crackles mild inspiratory expiratory wheezes. Chest Wall: Decrease expansion with deep inspiration no tenderness and no deformity was found on exam, no costochondral pain or discomfort. Heart: Irregular rate and rhythm, S1, S2 positive history positive JVD with systolic murmur. Back: Symmetric, no curvature, ROM normal, no CVA tenderness. Abdomen: Soft, non-tender, bowel sounds active all four quadrants, no masses, no organomegaly. Extremities: Extremities normal, atraumatic, no cyanosis or edema. Pulses: 2+ and symmetric. Skin: Skin color, texture, tugor normal, no rashes or lesions. Neurologic: Alert oriented, slight confusion cranial nerves II through XII intact, no motor deficit, no abnormal balance or gait. Results CBC & Chem 7: 12/20/19 12:52 12/20/19 12:52 Labs: Abnormal Lab Results - Last 24 Hours (Table) 12/20/19 12/20/19 12/20/19 Range/Units 12:52 12:52 12:52 WBC 24.0 H (3.8-10.6) k/uL RBC 3.70 L (4.30-5.90) m/uL Hgb 11.3 L (13.0-17.5) gm/dL Hct 35.3 L (39.0-53.0) % Neutrophils # 22.6 H (1.3-7.7) k/uL Lymphocytes # 0.4 L (1.0-4.8) k/uL D-Dimer 3.63 H (<0.60) mg/L FEU BUN 24 H (9-20) mg/dL Glucose 133 H (74-99) mg/dL Calcium 7.9 L (8.4-10.2) mg/dL AST 119 H (17-59) U/L ALT 173 H (4-49) U/L Alkaline Phosphatase 291 H (38-126) U/L Total Protein 5.6 L (6.3-8.2) g/dL Albumin 2.7 L (3.5-5.0) g/dL Thrombosis Risk Factor Assmnt - DVT/VTE Prophylaxis DVT/VTE Prophylaxis: Pharmacologic Prophylaxis ordered, Mechanical Prophylaxis ordered - Choose All That Apply Each Risk Factor Represents 3 Points: Age 75 years or older Thrombosis Risk Factor Assessment Total Risk Factor Score: 3 Thrombosis Risk Factor Assessment Level: Moderate Risk Assessment and Plan Assessment: 1 aspiration pneumonia and most likely gram-negative pneumonia: Patient will be hospitalized started vancomycin and Zosyn consult pulmonary sputum for Gram stain and culture blood culture be done repeat chest x-ray and CAT scan in the next few days. There is other possibility with this which is obstructive pneumonia specially related to the cancer and the stenosis from the tumor growth on the bronchial tube. 2 fever and chills and sepsis most likely from aspiration pneumonia continue current antibiotic awaiting for final blood culture. 3 altered mental status: Most likely from fever or chills and worsening dementia with mild encephalopathy was by the cancer with the possibility of micrometastasis beside worsening dementia and affected by the febrile illness and acute illness at this point. 4 recent history of lung mass post bronchoscopy and biopsy pending resolve at this point. 5 history of bladder cancer post the treatment and management was seen urology regular basis had multiple cystoscopy and because to be in remission at this point. 6 abdominal aortic aneurysm: Post stent graft repair done successfully has been doing well. 7 abnormal liver function tests not a clear etiology most likely possible metastasis further testing including CAT scan of the abdomen and pelvis or bone scan might be needed. 8 dementia and worsening symptoms: Has been on Namenda and Aricept resume both medication. 9 hypertension: Blood pressure has been lobe patient has been off medication at this point. 10 BPH: Watch for any urinary retention. 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 12 GI prophylaxis: Patient be on Pepcid 20 mg daily. 13 DVT prophylaxis: Patient will be on heparin subcutaneous. CODE STATUS: Full code. Family conference a meeting I had long discussion with the who is aware of the circumstances and reason for admission further evaluation and update will be done tomorrow. Admit patient to inpatient status more than 2 nights.
[2019-12-20] MEDS: MEMANTINE 10 MG TAB PO SCH (22:05)
[2019-12-20] MEDS: PIPERACILLIN-TAZOBACTAM 3.375 GM in SODIUM CHLORIDE 0.9% 100 ML IVPB SCH (23:05)
[2019-12-21] MEDS: VANCOMYCIN 1,500 MG in SODIUM CHLORIDE 0.9% 250 ML IVPB SCH ×2 (06:18→17:23)
--- NOTE | 2019-12-21 07:48 | P.CONS ---
History of Present Illness - Reason for Consult Consult date: 12/21/19 - Chief Complaint lung mass - History of Present Illness 79-year-old gentleman past medical history of bladder cancer with resection, history of hyperlipidemia hypertension, dementia, follows Dr. Gloria, had a CAT scan a month ago that showed large mass in the right upper and middle area of the lung, still undergoing evaluation and needed bronchoscopy, had hemoptysis which led him to come to the hospital for further evaluation. The patient had bronchoscopy but the results are not packet. Currently admitted with worsening symptoms of shortness of breath, cough, hemoptysis, fevers CT sh owed aspiration pneumonia right upper and middle lobe mass. Also had leukocytosis and the patient was started on broad-spectrum antibiotics including Zosyn and Levaquin. Review of Systems signs and symptoms of infection versus other systems negative Past Medical History Past Medical History: Cancer, Dementia, Hyperlipidemia, Hypertension, Memory Impairment, Osteoarthritis (OA), Pneumonia Additional Past Medical History / Comment(s): VARICOSE VEINS, LIMITED ROM IN NECK DUE TO CERVICAL SURGERY,, hx. bladder cancer a year ago-finished chemo, mass in lung per spouse History of Any Multi-Drug Resistant Organisms: None Reported Past Surgical History: Back Surgery, Hernia Repair, Orthopedic Surgery Additional Past Surgical History / Comment(s): CERVICAL SPINE , UMBILICAL HERNIA, LINDA KNEE SURGERY, MENDEZ 02-26-14, bladder biopsies, open heart surg. to remove myxoma 5 yrs. ago @[place], bone marrow bx. @[place], aortic aneurysm r epair Past Anesthesia/Blood Transfusion Reactions: Previous Problems w/ Anesthesia Additional Past Anesthesia/Blood Transfusion Reaction / Comm: SPOUSE STATES DIFFICULTY WAKING , ALSO THEY NEEDED TO USE A SMALLER TUBE IN HIS THROAT DUE TO HX OF CERVICAL SURGERY AND LIMITED ROM IN NECK. Past Psychological History: No Psychological Hx Reported Smoking Status: Former smoker Past Alcohol Use History: None Reported Additional Past Alcohol Use History / Comment(s): quit smoking 20-25 yrs. ago, spouse doen'st know how long or how much he smoked Past Drug Use History: None Reported - Past Family History Sister(s) Family Medical History: Deep Vein Thrombosis (DVT), Pulmonary Embolus Mother Family Medical History: Cancer, Pneumonia Additional Family Medical History / Comment(s): CERVICAL Medications and Allergies Home Medications Medication Instructions Recorded Confirmed Type Donepezil [Aricept] 10 mg PO DAILY 12/20/19 12/20/19 History Memantine [Namenda] 10 mg PO BID 12/20/19 12/20/19 History Allergies Allergy/AdvReac Type Severity Reaction Status Date / Time adhesive Allergy tape Verified 12/20/19 12:31 pulled skin off Physical Exam Vitals: Vital Signs Temp Pulse Pulse Resp BP BP Pulse Ox 12/21/19 04:00 98.3 F 73 18 102/58 94 L 12/20/19 23:49 98.3 F 83 18 139/50 99 12/20/19 20:00 98.5 F 77 18 101/52 94 L 12/20/19 17:34 97.6 F 80 16 95/55 94 L 12/20/19 16:03 76 16 103/78 99 12/20/19 12:45 100.5 F H 12/20/19 12:29 98.7 F 76 18 112/70 92 L Intake and Output 12/20/19 12/21/19 12/21/19 22:59 06:59 14:59 Output Total 100 400 Balance -100 -400 Output: Urine 100 400 Other: Weight 76.204 kg 76 kg The patient appeared well nourished and normally developed. Vital signs as documented. Head exam is unremarkable. No scleral icterus or corneal arcus noted. Neck is without jugular venous distension, thyromegaly, or carotid bruits. Carotid upstrokes are brisk bilaterally. Lungs are clear to auscultation and percussion. Cardiac exam reveals the PMI to be normally sized and situated. Rhythm is regular. First and second heart sounds normal. No murmurs, rubs or gallops. Abdominal exam reveals normal bowel sounds, no masses, no organomegaly and no aortic enlargement. Extremities are nonedematous and both femoral and ped al pulses are normal. Results CBC & Chem 7: 12/20/19 12:52 12/20/19 12:52 Labs: Abnormal Lab Results - Last 24 Hours (Table) 12/20/19 12/20/19 12/20/19 Range/Units 12:52 12:52 12:52 WBC 24.0 H (3.8-10.6) k/uL RBC 3.70 L (4.30-5.90) m/uL Hgb 11.3 L (13.0-17.5) gm/dL Hct 35.3 L (39.0-53.0) % Neutrophils # 22.6 H (1.3-7.7) k/uL Lymphocytes # 0.4 L (1.0-4.8) k/uL D-Dimer 3.63 H (<0.60) mg/L FEU BUN 24 H (9-20) mg/dL Glucose 133 H (74-99) mg/dL Calcium 7.9 L (8.4-10.2) mg/dL AST 119 H (17-59) U/L ALT 173 H (4-49) U/L Alkaline Phosphatase 291 H (38-126) U/L Total Protein 5.6 L (6.3-8.2) g/dL Albumin 2.7 L (3.5-5.0) g/dL Assessment and Plan Assessment: #1. Lung mass still: Under evaluation status post bronchoscopy with biopsy pending at this time. High suspicion for lung cancer versus metastatic disease, Especially in view of history of bladder cancer. - The patient will need further evaluation and staging workup including CT chest abdomen pelvis and bone scan versus a PET scan as outpatient. MRI brain will be required. deferred to oncology team to be rounding tomorrow. - Further workup and treatment options depending on the biopsy results. #2. Aspiration pneumonia with CT findings, sepsis, fever shortness of breath, hemoptysis:T-max of 100.5 - being evaluated by pulmonary medicine, currently on Z Zosyn and vancomycin No. 3. Altered mental sensorium with underlying dementia. #4. Elevated liver enzymes with suspected metastatic disease. #5. H/O bladder cancer: Early stage status post surgical management and as r egular cystoscopies. As per the notes has been in remission. #6. 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 #7 Anemia with hemoglobin of 11.3. Reactive leukocytosis secondary to pneumonia with neutrophilia of bruising on the 24,000. other medical conditions. Dementia patient not able to give a clear history hyperlipidemia, hypertension, osteoarthritis, former smoking history, cervical surgical history history Thank you for allowing me to participate in the care of your patient. Amos Cooper MD Hematology Oncology [id number], [address] [place] [address] Office: [phone] Time with Patient: Greater than 30
[2019-12-21] MEDS: PIPERACILLIN-TAZOBACTAM 3.375 GM in SODIUM CHLORIDE 0.9% 100 ML IVPB SCH ×2 (09:48→16:12)
[2019-12-21] MEDS: DONEPEZIL 10 MG TAB PO SCH (09:49)
[2019-12-21] MEDS: HEPARIN SODIUM,PORCINE 5,000 UNIT/ML 1 ML VIAL SQ SCH ×2 (09:49→21:35)
[2019-12-21] MEDS: MEMANTINE 10 MG TAB PO SCH ×2 (09:49→21:35)
[2019-12-21] MEDS: FAMOTIDINE 20 MG TAB PO SCH (09:49)
--- NOTE | 2019-12-21 11:07 | P.PN ---
Subjective Progress Note Date: 12/21/19 Principal diagnosis: Fever and chills, altered mental status, aspiration pneumonia, recent diagn 79-year-old male one of my office patient with past medical history of bladder cancer with resection, history of hypertension hyperlipidemia and memory impairment who has been seen Dr. Pichardo oncology and chest x-ray over a month ago showed slight pneumonia CAT scan of the chest showed large mass in the right upper and middle area of the lung patient was diagnosed with possible lung cancer was referred to Dr. Chau and had bronchoscopy this past week results still pending the patient continued to have hemoptysis all along. Patient developed to have severe fatigue tiredness and generalized weakness not been able template and walk mild altered mental status with worsening cough worsening shortness of breath his cough was impenetrable ended up calling 911 ended up having hypoxia with temperature of 102 over to the emergency department at [facility] where was seen and evaluated found to have mass in the right side d-dimer was elevated CAT scan was performed and showed mass in the right upper and middle lobe with a debridement most likely from aspiration pneumonia. Patient white blood cell was quite bit elevated and had significant abnormal liver function test. Was started on gram-negative coverage was giving Zosyn and Levaquin oxygen was started will consult pulmonary and oncology and admit patient to the hospital for the above problem. 12/20: Patient continued to have significant cough and significant shortness of breath added Solu-Medrol and Tessalon Perle along with Pulmicort, patient has not seen pulmonary yet. Review his biopsy from this week looks like reactive cell with no cancer cells was found at this time this is still not final. Patient is not doing well overall long discussion with the about his condition his DO NOT RESUSCITATE as a CODE STATUS for now and it's all depend on the finding of his biopsy and final decision with pulmonary and oncology whether patient should be on aggressive management or in hospice care. Objective - Vital Signs Vital signs: Vital Signs Temp 98.3 F 12/21/19 04:00 Pulse 73 12/21/19 04:00 Resp 18 12/21/19 04:00 BP 102/58 12/21/19 04:00 Pulse Ox 94 L 12/21/19 04:00 Intake & Output 12/20/19 12/21/19 12/21/19 18:59 06:59 18:59 Output Total 500 Balance -500 Weight 76.204 kg 76 kg Output: Urine 500 - Exam Review of Systems CONSTITUTIONAL: Well-developed no acute respiratory distress. Mildly confuse and slight dyspnea. EYES: No icterus sclerae, no conjunctivitis. EARS, NOSE, MOUTH, THROAT, and FACE: No sore throat, lymphadenopathy, carotid bruits or deformity. RESPIRATORY: Significant cough wheezes and hemoptysis. CARDIOVASCULAR: No CP, Palpitation, PND, Orthopnea, or angina. GASTROINTESTINAL: No Abd pain, Nausea or vomiting, no Diarrhea or constipation, No GI Bleed, no distention or masses. GENITOURINARY: Negative for Hematuria or UTI, no kidney stones. INTEGUMENT/BREAST: Negative for any muscular injury with mild osteoarthritis.. HEMATOLOGIC/LYMPHATIC: Negative for bleed or purpura. MUSCULOSKELTAL: Negative for Myalgia or arthralgia. NEURLOGICAL: No LOC, Sz or syncope, blurred vision dizziness or abnormality.. Generalized fatigue abnormal balance and significant memory loss. BEHAVIORAL/PSYCH: Abnormal memory loss and dementia. ENDOCRINE: Negative. Physical Exam Vitals: General Appearance: Alert, cooperative, mild distress, appears stated age. Neck HEENT: Supple, no lymphadenopathy, no thyroid enlargement, no carotid bruits. Lungs: Decreased breath sound bilaterally specially right side the final rhonchi crackles mild inspiratory expiratory wheezes. Chest Wall: Decrease expansion with deep inspiration no tenderness and no deformity was found on exam, no costochondral pain or discomfort. Heart: Irregular rate and rhythm, S1, S2 positive history positive JVD with systolic murmur. Back: Symmetric, no curvature, ROM normal, no CVA tenderness. Abdomen: Soft, non-tender, bowel sounds active all four quadrants, no masses, no organomegaly. Extremities: Extremities normal, atraumatic, no cyanosis or edema. Pulses: 2+ and symmetric. Skin: Skin color, texture, tugor normal, no rashes or lesions. Neurologic: Alert oriented, slight confusion cranial nerves II through XII intact, no motor deficit, no abnormal balance or gait. - Labs CBC & Chem 7: 12/20/19 12:52 12/20/19 12:52 Labs: Abnormal Lab Results - Last 24 Hours (Table) 12/20/19 12/20/19 12/20/19 Range/Units 12:52 12:52 12:52 WBC 24.0 H (3.8-10.6) k/uL RBC 3.70 L (4.30-5.90) m/uL Hgb 11.3 L (13.0-17.5) gm/dL Hct 35.3 L (39.0-53.0) % Neutrophils # 22.6 H (1.3-7.7) k/uL Lymphocytes # 0.4 L (1.0-4.8) k/uL D-Dimer 3.63 H (<0.60) mg/L FEU BUN 24 H (9-20) mg/dL Glucose 133 H (74-99) mg/dL Calcium 7.9 L (8.4-10.2) mg/dL AST 119 H (17-59) U/L ALT 173 H (4-49) U/L Alkaline Phosphatase 291 H (38-126) U/L Total Protein 5.6 L (6.3-8.2) g/dL Albumin 2.7 L (3.5-5.0) g/dL Assessment and Plan Assessment: 1 aspiration pneumonia and most likely gram-negative pneumonia: Patient will be hospitalized started vancomycin and Zosyn consult pulmonary sputum for Gram stain and culture blood culture be done repeat chest x-ray and CAT scan in the next few days. There is other possibility with this which is obstructive pneumonia specially related to the cancer and the stenosis from the tumor growth on the bronchial tube. 2 fever and chills and sepsis most likely from aspiration pneumonia continue current antibiotic awaiting for final blood culture. 3 altered mental status: Most likely from fever or chills and worsening dementia with mild encephalopathy was by the cancer with the possibility of mi crometastasis beside worsening dementia and affected by the febrile illness and acute illness at this point. 4 recent history of lung mass post bronchoscopy and biopsy, initial biopsy result does not show any cancer cells so far more reactive tissue and not a clear might cause that whether this is can be one of the atypical pneumonitis from fungus are not awaiting for pulmonary before consulting infectious disease if needed. 5 history of bladder cancer post the treatment and management was seen urology regular basis had multiple cystoscopy and because to be in remission at this point. 6 abdominal aortic aneurysm: Post stent graft repair done successfully has been doing well. 7 abnormal liver function tests not a clear etiology most likely possible metastasis further testing including CAT scan of the abdomen and pelvis or bone scan might be needed. 8 dementia and worsening symptoms: Has been on Namenda and Aricept resume both medication. 9 hypertension: Blood pressure has been lobe patient has been off medication at this point. 10 BPH: Watch for any urinary retention. 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 CODE STATUS: DO NOT RESUSCITATE.
[2019-12-21 11:31] LABS: Glucose,Whole Blood 117 mg/dL (75-99)
[2019-12-21] MEDS: methylPREDNISolone SOD SUCCI 40 MG/ML 1 ML VIAL IV SCH ×2 (11:34→16:12)
[2019-12-21] MEDS: BENZONATATE 100 MG CAP PO SCH ×3 (11:34→21:35)
--- NOTE | 2019-12-21 14:35 | P.CNPUL ---
History of Present Illness Consult date: 12/21/19 Requesting physician: Esvin Ramires Reason for consult: dyspnea, abnormal CXR/CT Chief complaint: Shortness of breath, weakness History of present illness: This is a pleasant 79-year-old gentleman with a history of dementia, hyperlipidemia, hypertension, coronary myxoma status post excision, bladder cancer with previous chemotherapy. The patient was recently found to have a right middle lobe bronchus obstruction and had undergone a navigational bronchoscopy with biopsies on 12/16/[address] Chau. Bronchial washings, brushings and FNA were all negative for pathology. Transbronchial biopsies are still pending. Yesterday the patient had increasing shortness of breath, cough, blood-streaked sputum, increased weakness and difficulty standing per his . She brought him to the emergency room for the same. Chest x-ray revealed worsening right-sided opacity. CT angiogram ruled out pulmonary embolism. There is tracheal and bronchial debris could be related to hemoptysis status post biopsy or aspiration. There is a large right upper lobe and right middle lobe masslike consolidation which is increased since 12/16/2019 suggestive of pulmonary hemorrhage or postprocedure infection. He is currently afebrile though did have a T-max of 100.5. White count 24.0. Hemoglobin 11.3. D-dimer 3.63. Sodium 137. Potassium 4.3. Creatinine 0.82. AST 119. ALT 173. ProBNP 2310. He is seen today in consultation on the selective care unit. He is currently resting fairly comfortably in bed. Awake and alert in no acute distress. He's maintaining O2 saturations in the mid 90s on 4 L/m per nasal cannula. She's afebrile. Hemodynamically stable. He's been initiated on vancomycin and Zosyn. IV Solu-Medrol and bronchodilators. Heparin for DVT prophylaxis. Review of Systems REVIEW OF SYSTEMS: CONSTITUTIONAL: Generalized weakness. Denies any recent significant weight loss or weight gain. EYES: Denies change in vision. EARS, NOSE, MOUTH, THROAT: Denies headaches, denies sore throat. CARDIOVASCULAR: Denies chest pain, palpitations or syncopal episodes. RESPIRATORY: Positive for shortness of breath, cough, congestion and hemoptysis. GASTROINTESTINAL: Denies change in appetite, denies abdominal pain GENITOURINARY: Denies hematuria, denies infections. MUSKULOSKELETAL: Denies pain, denies swelling. INTEGUMENTARY: Denies rash, denies eczema. NEUROLOGICAL: Denies recent memory loss, no recent seizure activity. PSYCHIATRIC: Denies anxiety, denies depression. HEMATOLOGIC/LYMPHATIC: Denies anemia, denies enlarged lymph nodes. ROS unobtainable: due to mental status Past Medical History Past Medical History: Cancer, Dementia, Hyperlipidemia, Hypertension, Memory Impairment, Osteoarthritis (OA), Pneumonia Additional Past Medical History / Comment(s): VARICOSE VEINS, LIMITED ROM IN NECK DUE TO CERVICAL SURGERY,, hx. bladder cancer a year ago-finished chemo, mass in lung per spouse History of Any Multi-Drug Resistant Organisms: None Reported Past Surgical History: Back Surgery, Hernia Repair, Orthopedic Surgery Additional Past Surgical History / Comment(s): CERVICAL SPINE , UMBILICAL HERNIA, LINDA KNEE SURGERY, [facility]ENDEZ 02-26-14, bladder biopsies, open heart surg. to remove myxoma 5 yrs. ago @[place], bone marrow bx. @[place], aortic aneurysm repair Past Anesthesia/Blood Transfusion Reactions: Previous Problems w/ Anesthesia Additional Past Anesthesia/Blood Transfusion Reaction / Comment(s): SPOUSE STATES DIFFICULTY WAKING , ALSO THEY NEEDED TO USE A SMALLER TUBE IN HIS THROAT DUE TO HX OF CERVICAL SURGERY AND LIMITED ROM IN NECK. Past Psychological History: No Psychological Hx Reported Smoking Status: Former smoker Past Alcohol Use History: None Reported Additional Past Alcohol Use History / Comment(s): quit smoking 20-25 yrs. ago, spouse doen'st know how long or how much he smoked Past Drug Use History: None Reported - Past Family History Sister(s) Family Medical History: Deep Vein Thrombosis (DVT), Pulmonary Embolus Mother Family Medical History: Cancer, Pneumonia Additional Family Medical History / Comment(s): CERVICAL Medications and Allergies Home Medications Medication Instructions Recorded Confirmed Type Donepezil [Aricept] 10 mg PO DAILY 12/20/19 12/20/19 History Memantine [Namenda] 10 mg PO BID 12/20/19 12/20/19 History Allergies Allergy/AdvReac Type Severity Reaction Status Date / Time adhesive Allergy tape Verified 12/20/19 12:31 pulled skin off Physical Exam Vitals: Vital Signs Temp Pulse Pulse Resp BP BP Pulse Ox 12/21/19 11:38 98.1 F 72 18 108/66 95 12/21/19 08:00 98 F 81 16 101/65 95 12/21/19 04:00 98.3 F 73 18 102/58 94 L 12/20/19 23:49 98.3 F 83 18 139/50 99 12/20/19 20:00 98.5 F 77 18 101/52 94 L 12/20/19 17:34 97.6 F 80 16 95/55 94 L 12/20/19 16:03 76 16 103/78 99 Intake and Output 12/20/19 12/21/19 12/21/19 22:59 06:59 14:59 Intake Total 360 Output Total 100 400 300 Balance -100 -400 60 Intake: Oral 360 Output: Urine 100 400 300 Other: # Voids 1 Weight 76.204 kg 76 kg GENERAL EXAM: Alert, cooperative 79-year-old gentleman, on 4 L nasal cannula comfortable in no apparent distress. HEAD: Normocephalic. EYES: Normal reaction of pupils, equal size. NOSE: Clear with pink turbinates. THROAT: No erythema or exudates. NECK: No masses, no JVD. CHEST: No chest wall deformity. LUNGS: Equal air entry with crackles and few scattered rhonchi than right lung. CVS: S1 and S2 normal with no audible murmur, regular rhythm. ABDOMEN: No hepatosplenomegaly, normal bowel sounds, no guarding or rigidity. SPINE: No scoliosis or deformity SKIN: No rashes CENTRAL NERVOUS SYSTEM: No focal deficits, tone is normal in all 4 extremities. EXTREMITIES: There is no peripheral edema. No clubbing, no cyanosis. Peripheral pulses are intact. Results - Laboratory Findings CBC and BMP: 12/20/19 12:52 12/20/19 12:52 PT/INR, D-dimer PT 11.3 sec (9.0-12.0) 12/20/19 12:52 INR 1.1 (<1.2) 12/20/19 12:52 D-Dimer 3.63 mg/L FEU (<0.60) H 12/20/19 12:52 Abnormal lab findings: Abnormal Labs 12/20/19 12/20/19 12/20/19 12:52 12:52 12:52 WBC 24.0 H RBC 3.70 L Hgb 11.3 L Hct 35.3 L Neutrophils # 22.6 H Lymphocytes # 0.4 L D-Dimer 3.63 H BUN 24 H Glucose 133 H POC Glucose (mg/dL) Calcium 7.9 L AST 119 H ALT 173 H Alkaline Phosphatase 291 H Total Protein 5.6 L Albumin 2.7 L 12/21/19 11:30 WBC RBC Hgb Hct Neutrophils # Lymphocytes # D-Dimer BUN Glucose POC Glucose (mg/dL) 117 H Calcium AST ALT Alkaline Phosphatase Total Protein Albumin - Diagnostic Findings Chest x-ray: image reviewed CT scan - chest: image reviewed Assessment and Plan Assessment: 1 Acute hypoxic respiratory failure secondary to increasing large right upper lobe and right middle lobe masslike consolidation. Bronchoscopy with biopsies on 12/16/2019 with pathology pending. 2 Hemoptysis secondary to tracheal and bronchial debris post biopsy blood products versus aspiration. 3 Febrile illness secondary to above 4 History of bladder cancer status post chemotherapy 5 Dementia 6 Hyperlipidemia 7 Hypertension 8 Osteoarthritis 9 Former smoker 10 Previous cervical surgery with limited range of motion in the neck Plan: The patient was seen and evaluated by Dr. Ryan Chest x-ray, CAT scans and labs reviewed We'll continue with vancomycin and Zosyn Continue bronchodilators Titrate down the FiO2 as tolerated Await final pathology results Oncology is on the case We will continue to follow and make further recommendations based on his clinical status. I, the cosigning physician, performed a history & physical examination of the patient. Lungs sounds with crackles and scattered rhonchi in the right lung. Maintaining good O2 saturations in the 90s on 4 L/m per nasal cannula. I discussed the assessment and plan of care with my nurse practitioner, Sherrill Chahal. I attest to the above note as dictated by her. Time with Patient: Greater than 30
[2019-12-21 16:18] LABS: Glucose,Whole Blood 135 mg/dL (75-99)
[2019-12-21] MEDS: BUDESONIDE 0.5 MG/2 ML NEBU INHALATION SCH (20:30)
[2019-12-21] MEDS: ALBUTEROL NEBULIZED 2.5 MG/3 ML INHALATION PRN (20:30)
[2019-12-21 20:45] LABS: Glucose,Whole Blood 180 mg/dL (75-99)
[2019-12-22] MEDS: methylPREDNISolone SOD SUCCI 40 MG/ML 1 ML VIAL IV SCH ×4 (01:00→22:50)
[2019-12-22] MEDS: PIPERACILLIN-TAZOBACTAM 3.375 GM in SODIUM CHLORIDE 0.9% 100 ML IVPB SCH ×4 (01:00→22:52)
[2019-12-22 06:09] LABS: Glucose,Whole Blood 124 mg/dL (75-99)
[2019-12-22] MEDS: VANCOMYCIN 1,500 MG in SODIUM CHLORIDE 0.9% 250 ML IVPB SCH ×2 (06:26→17:35)
[2019-12-22] MEDS: BUDESONIDE 0.5 MG/2 ML NEBU INHALATION SCH ×2 (08:37→19:30)
[2019-12-22] MEDS: ALBUTEROL NEBULIZED 2.5 MG/3 ML INHALATION PRN ×2 (08:37→19:30)
[2019-12-22 08:45] LABS: African American GFR (CKD) >90 (>60 ml/min/1.73 sqM); Anion Gap 8 mmol/L; Blood Urea Nitrogen 24 mg/dL (9-20); Carbon Dioxide 20 mmol/L (22-30); Chloride 109 mmol/L (98-107); Glucose 143 mg/dL (74-99); Non-African American GFR(CKD) >90 (>60 ml/min/1.73 sqM); Sodium 137 mmol/L (137-145)
[2019-12-22 08:47] LABS: Potassium 4.3 mmol/L (3.5-5.1)
[2019-12-22 09:11] LABS: HCT 36.6 % (39.0-53.0); HGB 11.3 gm/dL (13.0-17.5); Hypochromasia Marked; MCH 30.7 pg (25.0-35.0); MCHC 30.9 g/dL (31.0-37.0); MCV 99.4 fL (80.0-100.0); Mean Platelet Volume 8.6; Platelet Count 385 k/uL (150-450); RBC 3.68 m/uL (4.30-5.90); RDW 14.4 % (11.5-15.5); WBC 20.2 k/uL (3.8-10.6)
[2019-12-22] MEDS: FAMOTIDINE 20 MG TAB PO SCH (09:17)
[2019-12-22] MEDS: HEPARIN SODIUM,PORCINE 5,000 UNIT/ML 1 ML VIAL SQ SCH ×3 (09:17→20:29)
[2019-12-22] MEDS: DONEPEZIL 10 MG TAB PO SCH (09:17)
[2019-12-22] MEDS: MEMANTINE 10 MG TAB PO SCH ×2 (09:17→20:27)
[2019-12-22] MEDS: BENZONATATE 100 MG CAP PO SCH ×3 (09:17→20:27)
--- NOTE | 2019-12-22 09:48 | P.PN ---
Subjective Progress Note Date: 12/22/19 Principal diagnosis: acute hypoxic respiratory failure secondary to large right upper lobe and right middle lobe mass This is a pleasant 79-year-old gentleman with a history of dementia, hyperlipidemia, hypertension, coronary myxoma status post excision, bladder cancer with previous chemotherapy. The patient was recently found to have a right middle lobe bronchus obstruction and had undergone a navigational bronchoscopy with biopsies on 12/16/[address] Chau. Bronchial washings, brushings and FNA were all negative for pathology. Transbronchial biopsies are still pending. Yesterday the patient had increasing shortness of breath, cough, blood-streaked sputum, increased weakness and difficulty standing per his . She brought him to the emergency room for the same. Chest x-ray revealed worsening right-sided opacity. CT angiogram ruled out pulmonary embolism. There is tracheal and bronchial debris could be related to hemoptysis status post biopsy or aspiration. There is a large right upper lobe and right middle lobe masslike consolidation which is increased since 12/16/2019 suggestive of pulmonary hemorrhage or postprocedure infection. He is currently afebrile though did have a T-max of 100.5. White count 24.0. Hemoglobin 11.3. D-dimer 3.63. Sodium 137. Potassium 4.3. Creatinine 0.82. AST 119. ALT 173. ProBNP 2310. He is seen today in consultation on the selective care unit. He is currently resting fairly comfortably in bed. Awake and alert in no acute distress. He's maintaining O2 saturations in the mid 90s on 4 L/m per nasal c annula. She's afebrile. Hemodynamically stable. He's been initiated on vancomycin and Zosyn. IV Solu-Medrol and bronchodilators. Heparin for DVT prophylaxis. On 12/22/2019 patient seen in follow-up on selective care unit, he is resting comfortably in bed, currently on 6 L of oxygen the pulse ox of 94%, afebrile, in no acute distress, awake and alert. He states his cough is improving, his br eathing is comfortable. his lung biopsy results are still pending at this time, cytology of the peritracheal lymph node aspirate showed no cytologically malignant cells, and BAL of the right middle lobe and right upper lobe was negative. electromagnetic navigation biopsy results pending. remains on Zosyn and vancomycin, his been afebrile, has not been able to produce a sputum sample. today's labs show white blood cell count is improved, and down to 20.2, hemoglobin is 11.3, sodium is 137, potassium is 4.3, chloride is 109, CO2 is 20, BUN is 24 and creatinine 0.70. Objective - Vital Signs Vital signs: Vital Signs Temp 98.9 F 12/22/19 04:00 Pulse 72 12/22/19 08:50 Resp 20 12/22/19 04:00 BP 109/67 12/22/19 04:00 Pulse Ox 94 L 12/22/19 04:00 Intake & Output 12/21/19 12/22/19 12/22/19 18:59 06:59 18:59 Intake Total 600 240 Output Total 400 500 Balance 200 -500 240 Weight 57 kg 76.4 kg Intake: Oral 600 240 Output: Urine 400 500 Other: # Voids 1 - Exam GENERAL EXAM: Alert, very pleasant, 79-year-old white male, on 6 L of oxygen with a pulse ox of 94%comfortable in no apparent distress. HEAD: Normocephalic/atraumatic. EYES: Normal reaction of pupils, equal size. Conjunctiva pink, sclera white. NOSE: Clear with pink turbinates. THROAT: No erythema or exudates. NECK: No masses, no JVD, no thyroid enlargement, no adenopathy. CHEST: No chest wall deformity. Symmetrical expansion. LUNGS: Equal air entry with pleural rub, bilaterally, right greater than left CVS: Regular rate and rhythm, normal S1 and S2, no gallops, no murmurs, no rubs ABDOMEN: Soft, nontender. No hepatosplenomegaly, normal bowel sounds, no guarding or rigidity. EXTREMITIES: No clubbing, no edema, no cyanosis, 2+ pulses and upper and lower extremities. MUSCULOSKELETAL: Muscle strength and tone normal. SPINE: No scoliosis or deformity SKIN: No rashes CENTRAL NERVOUS SYSTEM: Alert and oriented -3. No focal deficits, tone is normal in all 4 extremities. PSYCHIATRIC: Alert and oriented -3. Appropriate affect. Intact judgment and i nsight. - Labs CBC & Chem 7: 12/22/19 08:03 12/22/19 08:03 Labs: Abnormal Lab Results - Last 24 Hours (Table) 0512/21/19 12/21/19 Range/Units 11:30 16:17 20:43 WBC (3.8-10.6) k/uL RBC (4.30-5.90) m/uL Hgb (13.0-17.5) gm/dL Hct (39.0-53.0) % MCHC (31.0-37.0) g/dL Chloride (98-107) mmol/L Carbon Dioxide (22-30) mmol/L BUN (9-20) mg/dL Glucose (74-99) mg/dL POC Glucose (mg/dL) 117 H 135 H 180 H (75-99) mg/dL Calcium (8.4-10.2) mg/dL 12/22/19 12/22/19 12/22/19 Range/Units 06:07 08:03 08:03 WBC 20.2 H (3.8-10.6) k/uL RBC 3.68 L (4.30-5.90) m/uL Hgb 11.3 L (13.0-17.5) gm/dL Hct 36.6 L (39.0-53.0) % MCHC 30.9 L (31.0-37.0) g/dL Chloride 109 H (98-107) mmol/L Carbon Dioxide 20 L (22-30) mmol/L BUN 24 H (9-20) mg/dL Glucose 143 H (74-99) mg/dL POC Glucose (mg/dL) 124 H (75-99) mg/dL Calcium 8.0 L (8.4-10.2) mg/dL Microbiology - Last 24 Hours (Table) 12/20/19 13:29 Blood Culture - Preliminary Blood No Growth after 24 hours Assessment and Plan Plan: 1 Acute hypoxic respiratory failure secondary to increasing large right upper lobe and right middle lobe masslike consolidation. Bronchoscopy with biopsies on 12/16/2019 with pathology pending. 2 Hemoptysis secondary to tracheal and bronchial debris post biopsy blood products versus aspiration. 3 Febrile illness secondary to above 4 History of bladder cancer status post chemotherapy 5 Dementia 6 Hyperlipidemia 7 Hypertension 8 Osteoarthritis 9 Former smoker 10 Previous cervical surgery with limited range of motion in the neck Plan: Continue current antibiotics, will try to collect a sputum sample, patient has been afebrile, white blood cell count is down trending. Tinea IV steroids and bronchodilators, wean FiO2, still awaiting final pathology results from the right lung and electromagnetic navigation biopsy. Obtain follow-up chest x-ray in the morning I performed a history & physical examination of the patient and discussed their management with my nurse practitioner, Abida Calvillo. I reviewed the nurse practitioner's note and agree with the documented findings and plan of care. Lung sounds are positive for diminished breath sounds. The findings and the impression was discussed with the patient. I attest to the documentation by the nurse practitioner. Time with Patient: Less than 30
--- NOTE | 2019-12-22 09:51 | P.PN ---
Subjective Progress Note Date: 12/22/19 Principal diagnosis: Fever and chills, altered mental status, aspiration pneumonia, recent diagn 79-year-old male one of my office patient with past medical history of bladder cancer with resection, history of hypertension hyperlipidemia and memory impairment who has been seen Dr. Pichardo oncology and chest x-ray over a month ago showed slight pneumonia CAT scan of the chest showed large mass in the right upper and middle area of the lung patient was diagnosed with possible lung cancer was referred to Dr. Chau and had bronchoscopy this past week results still pending the patient continued to have hemoptysis all along. Patient developed to have severe fatigue tiredness and generalized weakness not been able template and walk mild altered mental status with worsening cough worsening shortness of breath his cough was impenetrable ended up calling 911 ended up having hypoxia with temperature of 102 over to the emergency department at [facility] where was seen and evaluated found to have mass in the right side d-dimer was elevated CAT scan was performed and showed mass in the right upper and middle lobe with a debridement most likely from aspiration pneumonia. Patient white blood cell was quite bit elevated and had significant abnormal liver function test. Was started on gram-negative coverage was giving Zosyn and Levaquin oxygen was started will consult pulmonary and oncology and admit patient to the hospital for the above problem. 12/20: Patient continued to have significant cough and significant shortness of breath added Solu-Medrol and Tessalon Perle along with Pulmicort, patient has not seen pulmonary yet. Review his biopsy from this week looks like reactive cell with no cancer cells was found at this time this is still not final. Patient is not doing well overall long discussion with the about his condition his DO NOT RESUSCITATE as a CODE STATUS for now and it's all depend on the finding of his biopsy and final decision with pulmonary and oncology whether patient should be on aggressive management or in hospice care. 12/21: Patient is doing better decreased cough so far the biopsies not final so far patient pathology from the bronchial wash came back negative for cancer at the pathology for the biopsy done from the mass last week is not back yet. I spoke with the today give her an update further plan hopefully after the pathology is complete. Objective - Vital Signs Vital signs: Vital Signs Temp 97.5 F L 12/22/19 09:30 Pulse 77 12/22/19 09:30 Resp 20 12/22/19 09:30 BP 97/50 12/22/19 09:30 Pulse Ox 92 L 12/22/19 09:30 Intake & Output 12/21/19 12/22/19 12/22/19 18:59 06:59 18:59 Intake Total 600 240 Output Total 400 500 Balance 200 -500 240 Weight 57 kg 76.4 kg Intake: Oral 600 240 Output: Urine 400 500 Other: # Voids 1 - Exam Review of Systems CONSTITUTIONAL: Well-developed no acute respiratory distress. Mildly confuse and slight dyspnea. EYES: No icterus sclerae, no conjunctivitis. EARS, NOSE, MOUTH, THROAT, and FACE: No sore throat, lymphadenopathy, carotid bruits or deformity. RESPIRATORY: Significant cough wheezes and hemoptysis. CARDIOVASCULAR: No CP, Palpitation, PND, Orthopnea, or angina. GASTROINTESTINAL: No Abd pain, Nausea or vomiting, no Diarrhea or constipation, No GI Bleed, no distention or masses. GENITOURINARY: Negative for Hematuria or UTI, no kidney stones. INTEGUMENT/BREAST: Negative for any muscular injury with mild osteoarthritis.. HEMATOLOGIC/LYMPHATIC: Negative for bleed or purpura. MUSCULOSKELTAL: Negative for Myalgia or arthralgia. NEURLOGICAL: No LOC, Sz or syncope, blurred vision dizziness or abnormality.. Generalized fatigue abnormal balance and significant memory loss. BEHAVIORAL/PSYCH: Abnormal memory loss and dementia. ENDOCRINE: Negative. Physical Exam Vitals: General Appearance: Alert, cooperative, mild distress, appears stated age. Neck HEENT: Supple, no lymphadenopathy, no thyroid enlargement, no carotid bruits. Lungs: Decreased breath sound bilaterally specially right side the final rhonchi crackles mild inspiratory expiratory wheezes. Chest Wall: Decrease expansion with deep inspiration no tenderness and no deformity was found on exam, no costochondral pain or discomfort. Heart: Irregular rate and rhythm, S1, S2 positive history positive JVD with systolic murmur. Back: Symmetric, no curvature, ROM normal, no CVA tenderness. Abdomen: Soft, non-tender, bowel sounds active all four quadrants, no masses, no organomegaly. Extremities: Extremities normal, atraumatic, no cyanosis or edema. Pulses: 2+ and symmetric. Skin: Skin color, texture, tugor normal, no rashes or lesions. Neurologic: Alert oriented, slight confusion cranial nerves II through XII intact, no motor deficit, no abnormal balance or gait. - Labs CBC & Chem 7: 12/22/19 08:03 12/22/19 08:03 Labs: Abnormal Lab Results - Last 24 Hours (Table) 12/21/19 12/21/19 12/21/19 Range/Units 11:30 16:17 20:43 WBC (3.8-10.6) k/uL RBC (4.30-5.90) m/uL Hgb (13.0-17.5) gm/dL Hct (39.0-53.0) % MCHC (31.0-37.0) g/dL Chloride (98-107) mmol/L Carbon Dioxide (22-30) mmol/L BUN (9-20) mg/dL Glucose (74-99) mg/dL POC Glucose (mg/dL) 117 H 135 H 180 H (75-99) mg/dL Calcium (8.4-10.2) mg/dL 12/22/19 12/22/19 12/22/19 Range/Units 06:07 08:03 08:03 WBC 20.2 H (3.8-10.6) k/uL RBC 3.68 L (4.30-5.90) m/uL Hgb 11.3 L (13.0-17.5) gm/dL Hct 36.6 L (39.0-53.0) % MCHC 30.9 L (31.0-37.0) g/dL Chloride 109 H (98-107) mmol/L Carbon Dioxide 20 L (22-30) mmol/L BUN 24 H (9-20) mg/dL Glucose 143 H (74-99) mg/dL POC Glucose (mg/dL) 124 H (75-99) mg/dL Calcium 8.0 L (8.4-10.2) mg/dL Microbiology - Last 24 Hours (Table) 12/20/19 13:29 Blood Culture - Preliminary Blood No Growth after 24 hours Assessment and Plan Assessment: 1 aspiration pneumonia and most likely gram-negative pneumonia: Patient will be hospitalized started vancomycin and Zosyn consult pulmonary sputum for Gram stain and culture blood culture be done repeat chest x-ray and CAT scan in the next few days. There is other possibility with this which is obstructive pneumonia specially related to the cancer and the stenosis from the tumor growth on the bronchial tube. 2 fever and chills and sepsis most likely from aspiration pneumonia continue current antibiotic awaiting for final blood culture. Patient has been treated for obstructive pneumonitis and he responded very well to treatment. 3 altered mental status: Most likely from fever or chills and worsening dementia with mild encephalopathy was by the cancer with the possibility of micrometastasis beside worsening dementia and affected by the febrile illness and acute illness at this point. 4 recent history of lung mass post bronchoscopy and biopsy, bronchial wash pathology came back negative with the full biopsy result is not back yet. 5 history of bladder cancer post the treatment and management was seen urology regular basis had multiple cystoscopy and because to be in remission at this point. 6 abdominal aortic aneurysm: Post stent graft repair done successfully has been doing well. 7 abnormal liver function tests not a clear etiology most likely possible metastasis further testing including CAT scan of the abdomen and pelvis or bone scan might be needed. 8 dementia and worsening symptoms: Has been on Namenda and Aricept resume both medication. 9 hypertension: Blood pressure has been lobe patient has been off medication at this point. 10 BPH: Watch for any urinary retention. 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 CODE STATUS: DO NOT RESUSCITATE.
[2019-12-22 11:31] LABS: Glucose,Whole Blood 147 mg/dL (75-99)
[2019-12-22] MEDS ORDERED: IOPAMIDOL CONTRAST (ORAL USE) VIAL PO PRN (14:39)
--- NOTE | 2019-12-22 14:44 | P.PN ---
<Brenna Ballesteros - Last Filed: 12/22/19 19:38> Subjective Progress Note Date: 12/22/19 Principal diagnosis: Lung Mass, Fevers Awaiting Final Path from Biopsy, washing negative for malignancy. Increased LFTs, recheck today and CT abdomen and pelvis to evaluate liver as well as full staging along with MRI brain. Objective - Vital Signs Vital signs: Vital Signs Temp 97.5 F L 12/22/19 12:00 Pulse 72 12/22/19 12:00 Resp 20 12/22/19 12:00 BP 138/76 12/22/19 12:00 Pulse Ox 95 12/22/19 12:00 Intake & Output 12/21/19 12/22/19 12/22/19 18:59 06:59 18:59 Intake Total 600 780 Output Total 400 500 Balance 200 -500 780 Weight 57 kg 76.4 kg Intake: Oral 600 780 Output: Urine 400 500 Other: # Voids 1 0 - Labs CBC & Chem 7: 12/22/19 08:03 12/22/19 08:03 Labs: Abnormal Lab Results - Last 24 Hours (Table) 12/21/19 12/21/19 12/22/19 Range/Units 16:17 20:43 06:07 WBC (3.8-10.6) k/uL RBC (4.30-5.90) m/uL Hgb (13.0-17.5) gm/dL Hct (39.0-53.0) % MCHC (31.0-37.0) g/dL Chloride (98-107) mmol/L Carbon Dioxide (22-30) mmol/L BUN (9-20) mg/dL Glucose (74-99) mg/dL POC Glucose (mg/dL) 135 H 180 H 124 H (75-99) mg/dL Calcium (8.4-10.2) mg/dL 12/22/19 12/22/19 12/22/19 Range/Units 08:03 08:03 11:29 WBC 20.2 H (3.8-10.6) k/uL RBC 3.68 L (4.30-5.90) m/uL Hgb 11.3 L (13.0-17.5) gm/dL Hct 36.6 L (39.0-53.0) % MCHC 30.9 L (31.0-37.0) g/dL Chloride 109 H (98-107) mmol/L Carbon Dioxide 20 L (22-30) mmol/L BUN 24 H (9-20) mg/dL Glucose 143 H (74-99) mg/dL POC Glucose (mg/dL) 147 H (75-99) mg/dL Calcium 8.0 L (8.4-10.2) mg/dL Microbiology - Last 24 Hours (Table) 12/20/19 13:29 Blood Culture - Preliminary Blood No Growth after 24 hours Assessment and Plan Plan: Assessment and Plan Lung mass still: Under evaluation status post bronchoscopy with biopsy pending at this time. - High suspicion for lung cancer versus metastatic disease, Especially in view of history of bladder cancer. - The patient will need further evaluation and staging workup including CT chest abdomen pelvis and bone scan versus a PET scan as outpatient. - MRI brain for full evaluation - Further workup and treatment options depending on the biopsy results. Aspiration pneumonia with CT findings, sepsis, fever shortness of breath, hemoptysis: Afebrile 24 hours - Pullmonary medicine, currently on Zosyn and vancomycin Altered mental sensorium with underlying dementia. Elevated liver enzymes with suspected metastatic disease. H/O bladder cancer: Early stage status post surgical management and as regular cystoscopies. As per the notes has been in remission. 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 Normocytic Anemia: - Mild - Likely secondary to underlying malignancy and blood loss hemoptysis Plan: - CT abdomen and Pelvis for increased LFTs and full stage malignancy - MRI of Brain - Recheck LFTs - Await final Pathology Addendum per patients would like to await results of biopsy before further diagnostics Physician Attest: I have completed the full history and physcial and agree with above dictation, dictated as a scribe <Jose Kidd - Last Filed: 12/22/19 23:16> Objective - Vital Signs Vital signs: Vital Signs Temp 97.5 F L 12/22/19 20:00 Pulse 81 12/22/19 20:00 Resp 18 12/22/19 20:00 BP 142/77 12/22/19 20:00 Pulse Ox 92 L 12/22/19 20:00 Intake & Output 12/22/19 12/22/19 12/23/19 06:59 18:59 06:59 Intake Total 780 225 Output Total 500 200 Balance -500 780 25 Weight 57 kg 76.4 kg Intake: Intake, IV Titration 225 Amount Piperacillin-Tazobactam 3 100 .375 gm In Sodium Chloride 0.9% 100 ml @ 25 mls/hr IVPB Q8HR [facility] Rx# :[id number] Vancomycin 1,500 mg In 125 Sodium Chloride 0.9% 250 ml @ 125 mls/hr IVPB Q12H [facility] Rx#:[id number] Oral 780 Output: Urine 500 200 Other: Voiding Method Urinal Diaper # Voids 0 1 - Labs CBC & Chem 7: 12/22/19 08:03 12/22/19 08:03 Labs: Abnormal Lab Results - Last 24 Hours (Table) 12/22/19 12/22/19 12/22/19 Range/Units 06:07 08:03 08:03 WBC 20.2 H (3.8-10.6) k/uL RBC 3.68 L (4.30-5.90) m/uL Hgb 11.3 L (13.0-17.5) gm/dL Hct 36.6 L (39.0-53.0) % MCHC 30.9 L (31.0-37.0) g/dL Chloride 109 H (98-107) mmol/L Carbon Dioxide 20 L (22-30) mmol/L BUN 24 H (9-20) mg/dL Glucose 143 H (74-99) mg/dL POC Glucose (mg/dL) 124 H (75-99) mg/dL Calcium 8.0 L (8.4-10.2) mg/dL AST (17-59) U/L ALT (4-49) U/L Alkaline Phosphatase (38-126) U/L Total Protein (6.3-8.2) g/dL Albumin (3.5-5.0) g/dL 12/22/19 12/22/19 12/22/19 Range/Units 11:29 16:21 16:23 WBC (3.8-10.6) k/uL RBC (4.30-5.90) m/uL Hgb (13.0-17.5) gm/dL Hct (39.0-53.0) % MCHC (31.0-37.0) g/dL Chloride (98-107) mmol/L Carbon Dioxide (22-30) mmol/L BUN (9-20) mg/dL Glucose (74-99) mg/dL POC Glucose (mg/dL) 147 H 128 H (75-99) mg/dL Calcium (8.4-10.2) mg/dL AST 238 H (17-59) U/L ALT 163 H (4-49) U/L Alkaline Phosphatase 224 H (38-126) U/L Total Protein 5.1 L (6.3-8.2) g/dL Albumin 2.3 L (3.5-5.0) g/dL 12/22/19 Range/Units 20:27 WBC (3.8-10.6) k/uL RBC (4.30-5.90) m/uL Hgb (13.0-17.5) gm/dL Hct (39.0-53.0) % MCHC (31.0-37.0) g/dL Chloride (98-107) mmol/L Carbon Dioxide (22-30) mmol/L BUN (9-20) mg/dL Glucose (74-99) mg/dL POC Glucose (mg/dL) 120 H (75-99) mg/dL Calcium (8.4-10.2) mg/dL AST (17-59) U/L ALT (4-49) U/L Alkaline Phosphatase (38-126) U/L Total Protein (6.3-8.2) g/dL Albumin (3.5-5.0) g/dL Microbiology - Last 24 Hours (Table) 12/20/19 13:29 Blood Culture - Preliminary Blood No Growth after 48 hours Assessment and Plan Plan: Add: Lung biopsy negative. Bronch report mentions sig extrinsic compression in rt mid lung. Therefore still suspicious for malignancy, with concern that negative pathology may be non diagnostic. Will d/w family re further investigations
[2019-12-22 16:24] LABS: Glucose,Whole Blood 128 mg/dL (75-99)
[2019-12-22 16:34] LABS: Albumin 2.3 g/dL (3.5-5.0); Bilirubin, Delta 0.1 mg/dL (0.0-0.2); Bilirubin,Unconjugated 0.2 mg/dL (0.0-1.1); Total Bilirubin 0.3 mg/dL (0.2-1.3); Total Protein 5.1 g/dL (6.3-8.2)
[2019-12-22] MEDS ORDERED: VANCOMYCIN TROUGH DUE 1 EACH MISC MISCELLANE ONE (17:00)
[2019-12-22 20:28] LABS: Glucose,Whole Blood 120 mg/dL (75-99)
[2019-12-22] MEDS ORDERED: LORazepam 0.5 MG TAB PO PRN (21:28)
[2019-12-22] MEDS: LORazepam 2 MG/ML INJ IV PRN (21:49)
[2019-12-23] MEDS: VANCOMYCIN 1,500 MG in SODIUM CHLORIDE 0.9% 250 ML IVPB SCH ×2 (06:08→19:58)
[2019-12-23 06:14] LABS: Glucose,Whole Blood 110 mg/dL (75-99)
--- NOTE | 2019-12-23 06:57 | XR ---
EXAMINATION TYPE: XR chest 1V portable DATE OF EXAM: 12/23/2019 CLINICAL HISTORY: Difficulty breathing progress study. TECHNIQUE: Single AP portable frontal view of the chest is obtained. COMPARISON: Chest x-ray and CTA chest from 3 days earlier and older studies. FINDINGS: Background chronic emphysematous change with persistent elevated left hemidiaphragm. Persi stent right midlung masslike consolidation, correlate with bronchoscopy findings December 15. New right gr eater than left bibasilar opacities. Cardiac silhouette size stable and within normal limits. Diffuse tracheal narrowing likely product of underlying COPD. Atherosclerotic thoracic aorta redemonstrated. Osseous structures are intact. IMPRESSION: Background chronic emphysematous change and persistent right midlung masslike consolidati on felt fairly stable. New right greater than left bibasilar acute infiltrate and/or atelectasis and likely small to tiny bilateral pleural effusions.
[2019-12-23] MEDS: BUDESONIDE 0.5 MG/2 ML NEBU INHALATION SCH ×2 (07:37→20:17)
[2019-12-23 08:56] LABS: ALT 330 U/L (4-49); AST 502 U/L (17-59); African American GFR (CKD) >90 (>60 ml/min/1.73 sqM); Albumin 2.5 g/dL (3.5-5.0); Alkaline Phosphatase 270 U/L (38-126); Anion Gap 9 mmol/L; Blood Urea Nitrogen 32 mg/dL (9-20); Carbon Dioxide 20 mmol/L (22-30); Chloride 112 mmol/L (98-107); Glucose 98 mg/dL (74-99); Non-African American GFR(CKD) 87 (>60 ml/min/1.73 sqM); Potassium 4.2 mmol/L (3.5-5.1); Sodium 141 mmol/L (137-145); Total Bilirubin 0.5 mg/dL (0.2-1.3); Total Protein 5.4 g/dL (6.3-8.2)
[2019-12-23] MEDS: BENZONATATE 100 MG CAP PO SCH ×3 (09:14→22:09)
[2019-12-23] MEDS: FAMOTIDINE 20 MG TAB PO SCH (09:14)
[2019-12-23] MEDS: PIPERACILLIN-TAZOBACTAM 3.375 GM in SODIUM CHLORIDE 0.9% 100 ML IVPB SCH ×3 (09:14→23:06)
[2019-12-23] MEDS: MEMANTINE 10 MG TAB PO SCH ×2 (09:14→22:09)
[2019-12-23] MEDS: DONEPEZIL 10 MG TAB PO SCH (09:14)
[2019-12-23] MEDS: HEPARIN SODIUM,PORCINE 5,000 UNIT/ML 1 ML VIAL SQ SCH ×2 (09:14→21:49)
[2019-12-23] MEDS: methylPREDNISolone SOD SUCCI 40 MG/ML 1 ML VIAL IV SCH ×3 (09:14→23:06)
[2019-12-23 09:45] LABS: HCT 39.5 % (39.0-53.0); HGB 12.1 gm/dL (13.0-17.5); Hypochromasia Marked; MCH 31.5 pg (25.0-35.0); MCHC 30.7 g/dL (31.0-37.0); MCV 102.7 fL (80.0-100.0); Macrocytosis Slight; Mean Platelet Volume 10.4; Platelet Count 295 k/uL (150-450); RBC 3.85 m/uL (4.30-5.90); RDW 14.3 % (11.5-15.5)
[2019-12-23] MEDS: LORazepam 2 MG/ML INJ IV PRN (10:41)
[2019-12-23 11:54] LABS: Glucose,Whole Blood 170 mg/dL (75-99)
[2019-12-23 13:16] LABS: Band Neutrophils % 2 %; Myelocytes % 1 %; Neutrophils % (M) 95 %; Nucleated Red Blood Cells 1 /100 WBC (0-0); Total Cells Counted 200
[2019-12-23 13:19] LABS: Anisocytosis (M) Present
--- NOTE | 2019-12-23 14:12 | P.PN ---
Subjective Progress Note Date: 12/23/19 Principal diagnosis: acute hypoxic respiratory failure secondary to large right upper lobe and right middle lobe mass This is a pleasant 79-year-old gentleman with a history of dementia, hyperlipidemia, hypertension, coronary myxoma status post excision, bladder cancer with previous chemotherapy. The patient was recently found to have a right middle lobe bronchus obstruction and had undergone a navigational bronchoscopy with biopsies on 12/16/[address] Chau. Bronchial washings, brushings and FNA were all negative for pathology. Transbronchial biopsies are still pending. Yesterday the patient had increasing shortness of breath, cough, blood-streaked sputum, increased weakness and difficulty standing per his . She brought him to the emergency room for the same. Chest x-ray revealed worsening right-sided opacity. CT angiogram ruled out pulmonary embolism. There is tracheal and bronchial debris could be related to hemoptysis status post biopsy or aspiration. There is a large right upper lobe and right middle lobe masslike consolidation which is increased since 12/16/2019 suggestive of pulmonary hemorrhage or postprocedure infection. He is currently afebrile though did have a T-max of 100.5. White count 24.0. Hemoglobin 11.3. D-dimer 3.63. Sodium 137. Potassium 4.3. Creatinine 0.82. AST 119. ALT 173. ProBNP 2310. He is seen today in consultation on the selective care unit. He is currently resting fairly comfortably in bed. Awake and alert in no acute distress. He's maintaining O2 saturations in the mid 90s on 4 L/m per nasal c annula. She's afebrile. Hemodynamically stable. He's been initiated on vancomycin and Zosyn. IV Solu-Medrol and bronchodilators. Heparin for DVT prophylaxis. On 12/22/2019 patient seen in follow-up on selective care unit, he is resting comfortably in bed, currently on 6 L of oxygen the pulse ox of 94%, afebrile, in no acute distress, awake and alert. He states his cough is improving, his br eathing is comfortable. his lung biopsy results are still pending at this time, cytology of the peritracheal lymph node aspirate showed no cytologically malignant cells, and BAL of the right middle lobe and right upper lobe was negative. electromagnetic navigation biopsy results pending. remains on Zosyn and vancomycin, his been afebrile, has not been able to produce a sputum sample. today's labs show white blood cell count is improved, and down to 20.2, hemoglobin is 11.3, sodium is 137, potassium is 4.3, chloride is 109, CO2 is 20, BUN is 24 and creatinine 0.70. On 12/23/2019 patient seen in follow-up on selective care unit, used to be confused on today's exam, but he removed his oxygen, which was placed back on. but no signs of any respiratory distress, earlier he was sat 92% on 6 L, his been afebrile, occasional cough, and shortness of breath with exertion,remains on empiric antibiotics in the form of Zosyn and vancomycin. Has not been able to produce a sputum sample. Follow-up chest x-ray today shows persistent right midlung masslike consolidation which is felt to be fairly stable, and a new right greater than left bibasilar acute infiltrate and/or atelectasis and small to tiny bilateral pleural effusions. his lung biopsy results are in and showed organizing pneumonia and fragments of inflamed fibrous tissue with fibroplasia and fibrin, nondiagnostic of malignancy. today's labs have been reviewed, showing white blood cell count of 20, hemoglobin of 12.1, sodium is 141, potassium 4.2, chloride is 112, CO2 is 20, BUN is 32 and creatinine 0.7, liver transaminases noted to be increased on today's labs, with AST up to 502, ALT of 330, and alkaline phosphatase is 270. Coronanovirus PCR was negative Objective - Vital Signs Vital signs: Vital Signs Temp 97.6 F 12/23/19 04:00 Pulse 78 12/23/19 07:45 Resp 18 12/23/19 04:00 BP 156/75 12/23/19 04:00 Pulse Ox 92 L 12/23/19 04:00 Intake & Output 12/22/19 12/23/19 12/23/19 18:59 06:59 18:59 Intake Total 780 385 480 Output Total 200 Balance 780 185 480 Weight 76.4 kg 76 kg Intake: IV 160 0.9 160 Intake, IV Titration 225 Amount Piperacillin-Tazobactam 3 100 .375 gm In Sodium Chloride 0.9% 100 ml @ 25 mls/hr IVPB Q8HR [facility] Rx# :[id number] Vancomycin 1,500 mg In 125 Sodium Chloride 0.9% 250 ml @ 125 mls/hr IVPB Q12H [facility] Rx#:[id number] Oral 780 480 Output: Urine 200 Other: Voiding Method Urinal Diaper # Voids 0 1 2 - Exam GENERAL EXAM: Alert, very pleasant, 79-year-old white male, on 6 L of oxygen with a pulse ox of 92%comfortable in no apparent distress. HEAD: Normocephalic/atraumatic. EYES: Normal reaction of pupils, equal size. Conjunctiva pink, sclera white. NOSE: Clear with pink turbinates. THROAT: No erythema or exudates. NECK: No masses, no JVD, no thyroid enlargement, no adenopathy. CHEST: No chest wall deformity. Symmetrical expansion. LUNGS: Equal air entry with pleural rub, bilaterally, right greater than left CVS: Regular rate and rhythm, normal S1 and S2, no gallops, no murmurs, no rubs ABDOMEN: Soft, nontender. No hepatosplenomegaly, normal bowel sounds, no guarding or rigidity. EXTREMITIES: No clubbing, no edema, no cyanosis, 2+ pulses and upper and lower extremities. MUSCULOSKELETAL: Muscle strength and tone normal. SPINE: No scoliosis or deformity SKIN: No rashes CENTRAL NERVOUS SYSTEM: Alert and oriented -3. No focal deficits, tone is normal in all 4 extremities. PSYCHIATRIC: Alert and oriented -3. Appropriate affect. Intact judgment and insight. - Labs CBC & Chem 7: 12/23/19 07:31 12/23/19 07:31 Labs: Abnormal Lab Results - Last 24 Hours (Table) 12/22/19 12/22/19 12/22/19 Range/Units 16:21 16:23 20:27 WBC (3.8-10.6) k/uL RBC (4.30-5.90) m/uL Hgb (13.0-17.5) gm/dL MCV (80.0-100.0) fL MCHC (31.0-37.0) g/dL Neutrophils # (Manual) (1.3-7.7) k/uL Lymphocytes # (Manual) (1.0-4.8) k/uL Myelocytes # (Manual) (0) k/uL Nucleated RBCs (0-0) /100 WBC Chloride (98-107) mmol/L Carbon Dioxide (22-30) mmol/L BUN (9-20) mg/dL POC Glucose (mg/dL) 128 H 120 H (75-99) mg/dL Calcium (8.4-10.2) mg/dL AST 238 H (17-59) U/L ALT 163 H (4-49) U/L Alkaline Phosphatase 224 H (38-126) U/L Total Protein 5.1 L (6.3-8.2) g/dL Albumin 2.3 L (3.5-5.0) g/dL 12/23/19 12/23/19 12/23/19 Range/Units 06:12 07:31 07:31 WBC 20.0 H (3.8-10.6) k/uL RBC 3.85 L (4.30-5.90) m/uL Hgb 12.1 L (13.0-17.5) gm/dL MCV 102.7 H (80.0-100.0) fL MCHC 30.7 L (31.0-37.0) g/dL Neutrophils # (Manual) 19.40 H (1.3-7.7) k/uL Lymphocytes # (Manual) 0.20 L (1.0-4.8) k/uL Myelocytes # (Manual) 0.20 H (0) k/uL Nucleated RBCs 1 H (0-0) /100 WBC Chloride 112 H (98-107) mmol/L Carbon Dioxide 20 L (22-30) mmol/L BUN 32 H (9-20) mg/dL POC Glucose (mg/dL) 110 H (75-99) mg/dL Calcium 8.0 L (8.4-10.2) mg/dL AST 502 H (17-59) U/L ALT 330 H (4-49) U/L Alkaline Phosphatase 270 H (38-126) U/L Total Protein 5.4 L (6.3-8.2) g/dL Albumin 2.5 L (3.5-5.0) g/dL 12/23/19 Range/Units 11:53 WBC (3.8-10.6) k/uL RBC (4.30-5.90) m/uL Hgb (13.0-17.5) gm/dL MCV (80.0-100.0) fL MCHC (31.0-37.0) g/dL Neutrophils # (Manual) (1.3-7.7) k/uL Lymphocytes # (Manual) (1.0-4.8) k/uL Myelocytes # (Manual) (0) k/uL Nucleated RBCs (0-0) /100 WBC Chloride (98-107) mmol/L Carbon Dioxide (22-30) mmol/L BUN (9-20) mg/dL POC Glucose (mg/dL) 170 H (75-99) mg/dL Calcium (8.4-10.2) mg/dL AST (17-59) U/L ALT (4-49) U/L Alkaline Phosphatase (38-126) U/L Total Protein (6.3-8.2) g/dL Albumin (3.5-5.0) g/dL Microbiology - Last 24 Hours (Table) 12/20/19 13:29 Blood Culture - Preliminary Blood No Growth after 48 hours Assessment and Plan Plan: 1 Acute hypoxic respiratory failure secondary to increasing large right upper lobe and right middle lobe masslike consolidation. Bronchoscopy with biopsies on 12/16/2019 with pathology results nondiagnostic for malignancy, but did show organizing pneumonia 2 Hemoptysis secondary to tracheal and bronchial debris post biopsy blood products versus aspiration. 3 Febrile illness secondary to above 4 History of bladder cancer status post chemotherapy 5 Dementia 6 Hyperlipidemia 7 Hypertension 8 Osteoarthritis 9 Former smoker 10 Previous cervical surgery with limited range of motion in the neck 11 elevated liver transaminases, of unclear etiology, Plan: continue current antibiotics, will send a legionella urine antigen, will obtain ultrasound of the gallbladder. today's chest x-ray has been reviewed showing fairly stable persistent right midlung masslike consolidation and right greater than the left bibasilar Infiltrates with small to tiny bilateral pleural eff usions. We will make patient nothing by mouth, and schedule patient for bronchoscopy with BAL tomorrow with Dr. Calvo at 11:30 for inspection of airways, and particularly right middle lobe, and do a bronchoalveolar lavage. I performed a history & physical examination of the patient and discussed their management with my nurse practitioner, Abida Calvillo. I reviewed the nurse practitioner's note and agree with the documented findings and plan of care. Lung sounds are positive for diminished breath sounds. The findings and the impression was discussed with the patient. I attest to the documentation by the nurse practitioner. Time with Patient: Less than 30
--- NOTE | 2019-12-23 15:48 | US ---
EXAMINATION TYPE: US gallbladder DATE OF EXAM: 12/23/2019 COMPARISON: CT abdomen and pelvis September 14, 2019 CLINICAL HISTORY: elevated liver enzymes. elevated liver enzymes EXAM MEASUREMENTS: Liver Length: 15.4 cm Gallbladder Wall: 0.4 cm CBD: 0.5 cm Right Kidney: 10.4 x 4.2 x 5.2 cm Pancreas: Obscured by bowel gas Liver: Scattered tiny benign calcifications noted Gallbladder: multiple small stones, slightly thickened GB wall Evidence for sonographic Elam's sign: no CBD: wnl Right Kidney: no evidence of hydronephrosis Heterogeneous liver without intrahepatic ductal dilatation. Numerous small shadowing mobile gallstone s in gallbladder identified correlating with CT. Gallbladder wall thickness is mildly thickened 3 to 4 mm. No pericholecystic fluid or positive sonographic Elam's sign. IMPRESSION: Persistent small shadowing gallstones with perhaps mild gallbladder wall thickening. Hete rogeneous hyperechoic appearance of liver suggesting mild diffuse fatty infiltration and/or underlyin g hepatocellular disease.
[2019-12-23] MEDS ORDERED: LORazepam 2 MG/ML INJ ONE (16:00)
[2019-12-23] MEDS ORDERED: BENZONATATE 100 MG CAP PO ONE (16:00)
[2019-12-23 16:43] LABS: Glucose,Whole Blood 115 mg/dL (75-99)
--- NOTE | 2019-12-23 17:00 | P.PN ---
<Brenna Ballesteros - Last Filed: 12/23/19 16:57> Subjective Progress Note Date: 12/23/19 Principal diagnosis: Lung Mass, Fevers Further work-up ordered to assess for other areas of potential malignancy with increased LFTs, patient's has refused these at this time. Further evaluation of the increased Liver function was performed by primary team with gallbladder ultrasound. If patient and wish for further diagnostics further imaging and probable tissue biopsy would be indicated. Objective - Vital Signs Vital signs: Vital Signs Temp 97.5 F L 12/23/19 16:00 Pulse 58 L 12/23/19 16:00 Resp 16 12/23/19 16:00 BP 144/75 12/23/19 16:00 Pulse Ox 92 L 12/23/19 16:00 Intake & Output 12/22/19 12/23/19 12/23/19 18:59 06:59 18:59 Intake Total 780 385 480 Output Total 200 Balance 780 185 480 Weight 76.4 kg 76 kg Intake: IV 160 0.9 160 Intake, IV Titration 225 Amount Piperacillin-Tazobactam 3 100 .375 gm In Sodium Chloride 0.9% 100 ml @ 25 mls/hr IVPB Q8HR [facility] Rx# :[id number] Vancomycin 1,500 mg In 125 Sodium Chloride 0.9% 250 ml @ 125 mls/hr IVPB Q12H [facility] Rx#:[id number] Oral 780 480 Output: Urine 200 Other: Voiding Method Urinal Urinal Diaper Diaper # Voids 0 1 1 - Exam Gen: NAD, Awak, poor historian Head: NCNT Neck: Supple Lungs: Crackles at bases, mild increased effort Heart: RRR Abdomen: S/ND Ext: no rash Mood: Calm - Labs CBC & Chem 7: 12/23/19 07:31 12/23/19 07:31 Labs: Abnormal Lab Results - Last 24 Hours (Table) 12/22/19 12/23/19 12/23/19 Range/Units 20:27 06:12 07:31 WBC 20.0 H (3.8-10.6) k/uL RBC 3.85 L (4.30-5.90) m/uL Hgb 12.1 L (13.0-17.5) gm/dL MCV 102.7 H (80.0-100.0) fL MCHC 30.7 L (31.0-37.0) g/dL Neutrophils # (Manual) 19.40 H (1.3-7.7) k/uL Lymphocytes # (Manual) 0.20 L (1.0-4.8) k/uL Myelocytes # (Manual) 0.20 H (0) k/uL Nucleated RBCs 1 H (0-0) /100 WBC Chloride (98-107) mmol/L Carbon Dioxide (22-30) mmol/L BUN (9-20) mg/dL POC Glucose (mg/dL) 120 H 110 H (75-99) mg/dL Calcium (8.4-10.2) mg/dL AST (17-59) U/L ALT (4-49) U/L Alkaline Phosphatase (38-126) U/L Total Protein (6.3-8.2) g/dL Albumin (3.5-5.0) g/dL 12/23/19 12/23/19 12/23/19 Range/Units 07:31 11:53 16:42 WBC (3.8-10.6) k/uL RBC (4.30-5.90) m/uL Hgb (13.0-17.5) gm/dL MCV (80.0-100.0) fL MCHC (31.0-37.0) g/dL Neutrophils # (Manual) (1.3-7.7) k/uL Lymphocytes # (Manual) (1.0-4.8) k/uL Myelocytes # (Manual) (0) k/uL Nucleated RBCs (0-0) /100 WBC Chloride 112 H (98-107) mmol/L Carbon Dioxide 20 L (22-30) mmol/L BUN 32 H (9-20) mg/dL POC Glucose (mg/dL) 170 H 115 H (75-99) mg/dL Calcium 8.0 L (8.4-10.2) mg/dL AST 502 H (17-59) U/L ALT 330 H (4-49) U/L Alkaline Phosphatase 270 H (38-126) U/L Total Protein 5.4 L (6.3-8.2) g/dL Albumin 2.5 L (3.5-5.0) g/dL Microbiology - Last 24 Hours (Table) 12/20/19 13:29 Blood Culture - Preliminary Blood No Growth after 72 hours Assessment and Plan Plan: Assessment and Plan Lung mass still: Under evaluation status post bronchoscopy with biopsy pending at this time. - High suspicion for lung cancer versus metastatic disease, Especially in view of history of bladder cancer. - The patient will need further evaluation and staging workup including CT chest abdomen pelvis and bone scan versus a PET scan as outpatient. - MRI brain for full evaluation has been refused by per nursing - Further workup to assess for other area of concern. Biopsy resulted as negative, suspicion is still a concern and if family chooses so recommend further evaluation Aspiration pneumonia with CT findings, sepsis, fever shortness of breath, hemoptysis: Afebrile 24 hours - Pullmonary medicine, currently on Zosyn and vancomycin Altered mental sensorium with underlying dementia. Elevated liver enzymes with suspected metastatic disease. H/O bladder cancer: Early stage status post surgical management and as regular cystoscopies. As per the notes has been in remission. 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 Normocytic Anemia: - Mild - Likely secondary to underlying malignancy and blood loss hemoptysis Plan: - Recommendation is for further imaging and likely repeat biopsy given the high suspicion of underlying malignancy. If family chooses to move forward with further evaluation we will be happy to assist. Physician Attest: I have completed the full history and physcial and agree with above dictation, dictated as a scribe <Jose Kidd - Last Filed: 12/23/19 22:08> Subjective Pt significantly more confused, somewhat agitated. Daughter at bedside Objective - Vital Signs Vital signs: Vital Signs Temp 97.5 F L 12/23/19 16:00 Pulse 59 L 12/23/19 20:35 Resp 16 12/23/19 16:00 BP 144/75 12/23/19 16:00 Pulse Ox 92 L 12/23/19 16:00 Intake & Output 12/23/19 12/23/19 12/24/19 06:59 18:59 06:59 Intake Total 385 720 Output Total 200 Balance 185 720 Weight 76 kg Intake: IV 160 0.9 160 Intake, IV Titration 225 Amount Piperacillin-Tazobactam 3 100 .375 gm In Sodium Chloride 0.9% 100 ml @ 25 mls/hr IVPB Q8HR [facility] Rx# :[id number] Vancomycin 1,500 mg In 125 Sodium Chloride 0.9% 250 ml @ 125 mls/hr IVPB Q12H [facility] Rx#:[id number] Oral 720 Output: Urine 200 Other: Voiding Method Urinal Urinal Diaper Diaper # Voids 1 1 - Exam Add: Confused , somewhat agitated intermittently - Labs CBC & Chem 7: 12/23/19 07:31 12/23/19 07:31 Labs: Abnormal Lab Results - Last 24 Hours (Table) 12/23/19 12/23/19 12/23/19 Range/Units 06:12 07:31 07:31 WBC 20.0 H (3.8-10.6) k/uL RBC 3.85 L (4.30-5.90) m/uL Hgb 12.1 L (13.0-17.5) gm/dL MCV 102.7 H (80.0-100.0) fL MCHC 30.7 L (31.0-37.0) g/dL Neutrophils # (Manual) 19.40 H (1.3-7.7) k/uL Lymphocytes # (Manual) 0.20 L (1.0-4.8) k/uL Myelocytes # (Manual) 0.20 H (0) k/uL Nucleated RBCs 1 H (0-0) /100 WBC Chloride 112 H (98-107) mmol/L Carbon Dioxide 20 L (22-30) mmol/L BUN 32 H (9-20) mg/dL POC Glucose (mg/dL) 110 H (75-99) mg/dL Calcium 8.0 L (8.4-10.2) mg/dL AST 502 H (17-59) U/L ALT 330 H (4-49) U/L Alkaline Phosphatase 270 H (38-126) U/L Total Protein 5.4 L (6.3-8.2) g/dL Albumin 2.5 L (3.5-5.0) g/dL 12/23/19 12/23/19 12/23/19 Range/Units 11:53 16:42 20:44 WBC (3.8-10.6) k/uL RBC (4.30-5.90) m/uL Hgb (13.0-17.5) gm/dL MCV (80.0-100.0) fL MCHC (31.0-37.0) g/dL Neutrophils # (Manual) (1.3-7.7) k/uL Lymphocytes # (Manual) (1.0-4.8) k/uL Myelocytes # (Manual) (0) k/uL Nucleated RBCs (0-0) /100 WBC Chloride (98-107) mmol/L Carbon Dioxide (22-30) mmol/L BUN (9-20) mg/dL POC Glucose (mg/dL) 170 H 115 H 127 H (75-99) mg/dL Calcium (8.4-10.2) mg/dL AST (17-59) U/L ALT (4-49) U/L Alkaline Phosphatase (38-126) U/L Total Protein (6.3-8.2) g/dL Albumin (3.5-5.0) g/dL Microbiology - Last 24 Hours (Table) 12/20/19 13:29 Blood Culture - Preliminary Blood No Growth after 72 hours Assessment and Plan Plan: Add: Detailed discussion with daughter at bedside. She stated family is struggling with how to proceed. D/W them that at this time, malignancy is still strongly suspected. Thus the negative biopsy is considered non diagnostic. To proceed further, we would need additional imaging, as well as repeat attempts at a tis parish diagnosis. Assuming malignancy if confirmed, it is unlikely to be curable, and treatment would be palliative in intent. In his current condition, the pt would be a very questionable candidate for any kind of aggressive treatment. His progressive dementia and agitation additionally raise concern for brain mets. If positive for the same, he would be a poor candidate for brain RT. If negative, his mental status would greatly hinder other anti neoplastic therapy. The above and implications were discussed in detail. Based on the above the family feels that it would not be reasonable to put the pt through more testing or procedures. Comfort care was discussed. They have been contacted by Hospice. After out discussion, they have decided they will most likely proceed with the same
[2019-12-23] MEDS: ALBUTEROL NEBULIZED 2.5 MG/3 ML INHALATION PRN (20:17)
[2019-12-23 20:45] LABS: Glucose,Whole Blood 127 mg/dL (75-99)
[2019-12-24] MEDS: LORazepam 2 MG/ML INJ IV PRN ×2 (04:41→10:26)
[2019-12-24] MEDS: VANCOMYCIN 1,500 MG in SODIUM CHLORIDE 0.9% 250 ML IVPB SCH (05:06)
[2019-12-24 06:03] LABS: Glucose,Whole Blood 123 mg/dL (75-99)
[2019-12-24] MEDS: ALBUTEROL NEBULIZED 2.5 MG/3 ML INHALATION PRN ×2 (08:26→20:55)
[2019-12-24] MEDS: BUDESONIDE 0.5 MG/2 ML NEBU INHALATION SCH ×2 (08:26→20:55)
[2019-12-24] MEDS: BENZONATATE 100 MG CAP PO SCH ×3 (09:59→20:31)
[2019-12-24] MEDS: DONEPEZIL 10 MG TAB PO SCH (10:00)
[2019-12-24] MEDS: HEPARIN SODIUM,PORCINE 5,000 UNIT/ML 1 ML VIAL SQ SCH ×2 (10:00→20:25)
[2019-12-24] MEDS: FAMOTIDINE 20 MG TAB PO SCH (10:00)
[2019-12-24] MEDS: PIPERACILLIN-TAZOBACTAM 3.375 GM in SODIUM CHLORIDE 0.9% 100 ML IVPB SCH ×3 (10:00→23:12)
[2019-12-24] MEDS: MEMANTINE 10 MG TAB PO SCH ×2 (10:00→20:31)
[2019-12-24] MEDS: methylPREDNISolone SOD SUCCI 40 MG/ML 1 ML VIAL IV SCH ×3 (10:00→23:12)
[2019-12-24 10:22] VITALS: BMI 18.1
--- NOTE | 2019-12-24 11:18 | P.PN ---
Subjective Progress Note Date: 12/23/19 79-year-old male one of my office patient with past medical history of bladder cancer with resection, history of hypertension hyperlipidemia and memory impairment who has been seen Dr. Pichardo oncology and chest x-ray over a month ago showed slight pneumonia CAT scan of the chest showed large mass in the right upper and middle area of the lung patient was diagnosed with possible lung cancer was referred to Dr. Chau and had bronchoscopy this past week results still pending the patient continued to have hemoptysis all along. Patient developed to have severe fatigue tiredness and generalized weakness not been able template and walk mild altered mental status with worsening cough worsening shortness of breath his cough was impenetrable ended up calling 911 ended up having hypoxia with temperature of 102 over to the emergency department at [facility] where was seen and evaluated found to have mass in the right side d-dimer was elevated CAT scan was performed and showed mass in the right upper and middle lobe with a debridement most likely from aspiration pneumonia. Patient white blood cell was quite bit elevated and had significant abnormal liver function test. Was started on gram-negative coverage was giving Zosyn and Levaquin oxygen was started will consult pulmonary and oncology and admit patient to the hospital for the above problem. 12/20: Patient continued to have significant cough and significant shortness of breath added Solu-Medrol and Tessalon Perle along with Pulmicort, patient has not seen pulmonary yet. Review his biopsy from this week looks like reactive cell with no cancer cells was found at this time this is still not final. Patient is not doing well overall long discussion with the about his condition his DO NOT RESUSCITATE as a CODE STATUS for now and it's all depend on the finding of his biopsy and final decision with pulmonary and oncology whether patient should be on aggressive management or in hospice care. 12/21: Patient is doing better decreased cough so far the biopsies not final so far patient pathology from the bronchial wash came back negative for cancer at the pathology for the biopsy done from the mass last week is not back yet. I spoke with the today give her an update further plan hopefully after the pathology is complete. 12/22: Patient's pathology report have been negative for malignancy but still high suspicion for malignancy. Patient is having more confusion but denies any complaints when asked. He states he is feeling okay. Patient has been continued on vancomycin and Zosyn, Solu-Medrol IV at 40 mg every 8 hours. Repeat blood work reveals Radha BC 20, hemoglobin 12.1, platelet count 295. Sodium 141, potassium 4.2, chloride 112, CO2 20, BUN 32 and creatinine 0.77. Blood sugar 98. Total bilirubin 0.5, AST 502, ALT 330, alkaline phosphatase 270. Family refused for bronchoscopy as well as MRI was declined. Discussed with patient's daughter via phone the patient prognosis is poor and at this time recommended hospice. Patient's daughter to come in and see her father. Ref erral has been placed with [facility] with possible discharge to [facility] home. Objective - Vital Signs Vital signs: Vital Signs Temp 97.6 F 12/23/19 04:00 Pulse 78 12/23/19 07:45 Resp 18 12/23/19 04:00 BP 156/75 12/23/19 04:00 Pulse Ox 92 L 12/23/19 04:00 Intake & Output 12/22/19 12/23/19 12/23/19 18:59 06:59 18:59 Intake Total 780 385 0 Output Total 200 Balance 780 185 0 Weight 76.4 kg 76 kg Intake: IV 160 0.9 160 Intake, IV Titration 225 Amount Piperacillin-Tazobactam 3 100 .375 gm In Sodium Chloride 0.9% 100 ml @ 25 mls/hr IVPB Q8HR [facility] Rx# :[id number] Vancomycin 1,500 mg In 125 Sodium Chloride 0.9% 250 ml @ 125 mls/hr IVPB Q12H [facility] Rx#:[id number] Oral 780 0 Output: Urine 200 Other: Voiding Method Urinal Diaper # Voids 0 1 - Exam Review of Systems CONSTITUTIONAL: Well-developed no acute respiratory distress. Continued mild confusion and slight dyspnea. EYES: No icterus sclerae, no conjunctivitis. EARS, NOSE, MOUTH, THROAT, and FACE: No sore throat, lymphadenopathy, carotid bruits or deformity. RESPIRATORY: Significant cough wheezes and hemoptysis. CARDIOVASCULAR: No CP, Palpitation, PND, Orthopnea, or angina. GASTROINTESTINAL: No Abd pain, Nausea or vomiting, no Diarrhea or constipation, No GI Bleed, no distention or masses. GENITOURINARY: Negative for Hematuria or UTI, no kidney stones. INTEGUMENT/BREAST: Negative for any muscular injury with mild osteoarthritis.. HEMATOLOGIC/LYMPHATIC: Negative for bleed or purpura. MUSCULOSKELTAL: Negative for Myalgia or arthralgia. NEURLOGICAL: No LOC, Sz or syncope, blurred vision dizziness or abnormality.. Generalized fatigue abnormal balance and significant memory loss. BEHAVIORAL/PSYCH: Abnormal memory loss and dementia. ENDOCRINE: Negative. Physical Exam Vitals: General Appearance: Alert, cooperative, mild distress, appears stated age. Neck HEENT: Supple, no lymphadenopathy, no thyroid enlargement, no carotid bruits. Lungs: Decreased breath sound bilaterally with rhonchi crackles mild inspiratory expiratory wheezes. Chest Wall: Decrease expansion with deep inspiration no tenderness and no deformity was found on exam, no costochondral pain or discomfort. Heart: Irregular rate and rhythm, S1, S2 positive history positive JVD with systolic murmur. Back: Symmetric, no curvature, ROM normal, no CVA tenderness. Abdomen: Soft, non-tender, bowel sounds active all four quadrants, no masses, no organomegaly. Extremities: Extremities normal, atraumatic, no cyanosis or edema. Pulses: 2+ and symmetric. Skin: Skin color, texture, tugor normal, no rashes or lesions. Neurologic: Alert oriented, oriented to self only with confusion cranial nerves II through XII intact, no motor deficit, no abnormal balance or gait. - Labs CBC & Chem 7: 12/23/19 07:31 12/23/19 07:31 Labs: Abnormal Lab Results - Last 24 Hours (Table) 12/22/19 12/22/19 12/22/19 Range/Units 11:29 16:21 16:23 Chloride (98-107) mmol/L Carbon Dioxide (22-30) mmol/L BUN (9-20) mg/dL POC Glucose (mg/dL) 147 H 128 H (75-99) mg/dL Calcium (8.4-10.2) mg/dL AST 238 H (17-59) U/L ALT 163 H (4-49) U/L Alkaline Phosphatase 224 H (38-126) U/L Total Protein 5.1 L (6.3-8.2) g/dL Albumin 2.3 L (3.5-5.0) g/dL 12/22/19 12/23/19 12/23/19 Range/Units 20:27 06:12 07:31 Chloride 112 H (98-107) mmol/L Carbon Dioxide 20 L (22-30) mmol/L BUN 32 H (9-20) mg/dL POC Glucose (mg/dL) 120 H 110 H (75-99) mg/dL Calcium 8.0 L (8.4-10.2) mg/dL AST 502 H (17-59) U/L ALT 330 H (4-49) U/L Alkaline Phosphatase 270 H (38-126) U/L Total Protein 5.4 L (6.3-8.2) g/dL Albumin 2.5 L (3.5-5.0) g/dL Microbiology - Last 24 Hours (Table) 12/20/19 13:29 Blood Culture - Preliminary Blood No Growth after 48 hours Assessment and Plan Plan: 1 aspiration pneumonia and most likely gram-negative pneumonia: Patient will be hospitalized started vancomycin and Zosyn consult pulmonary sputum for Gram stain and culture blood culture be done repeat chest x-ray and CAT scan in the next few days. There is other possibility with this which is obstructive pneumonia specially related to the cancer and the stenosis from the tumor growth on the bronchial tube. 2 fever and chills and sepsis most likely from aspiration pneumonia continue current antibiotic awaiting for final blood culture. Patient has been treated for obstructive pneumonitis and he responded very well to treatment. 3 metabolic encephalopathy secondary to pneumonia and underlying dementia. 4 recent history of lung mass post bronchoscopy and biopsy, bronchial wash pathology came back negative but remains with high suspicion for lung cancer. 5 history of bladder cancer post the treatment and management was seen urology regular basis had multiple cystoscopy and because to be in remission at this point. 6 abdominal aortic aneurysm: Post stent graft repair done successfully has been doing well. 7 abnormal liver function tests not a clear etiology most likely possible metastasis. 8 dementia and worsening symptoms: Has been on Namenda and Aricept resume both medication. 9 hypertension: Blood pressure has been lobe patient has been off medication at this point. 10 BPH: Watch for any urinary retention. 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 CODE STATUS: DO NOT RESUSCITATE. Discharge plan: To be determined. Most likely [facility] Impression and plan of care have been directed as dictated by the signing physician. Sara Mcdonough nurse practitioner acting as scribe for signing physi israel.
--- NOTE | 2019-12-24 11:28 | P.PN ---
Subjective Progress Note Date: 12/24/19 79-year-old male one of my office patient with past medical history of bladder cancer with resection, history of hypertension hyperlipidemia and memory impairment who has been seen Dr. Pichardo oncology and chest x-ray over a month ago showed slight pneumonia CAT scan of the chest showed large mass in the right upper and middle area of the lung patient was diagnosed with possible lung cancer was referred to Dr. Chau and had bronchoscopy this past week results still pending the patient continued to have hemoptysis all along. Patient developed to have severe fatigue tiredness and generalized weakness not been able template and walk mild altered mental status with worsening cough worsening shortness of breath his cough was impenetrable ended up calling 911 ended up having hypoxia with temperature of 102 over to the emergency department at [facility] where was seen and evaluated found to have mass in the right side d-dimer was elevated CAT scan was performed and showed mass in the right upper and middle lobe with a debridement most likely from aspiration pneumonia. Patient white blood cell was quite bit elevated and had significant abnormal liver function test. Was started on gram-negative coverage was giving Zosyn and Levaquin oxygen was started will consult pulmonary and oncology and admit patient to the hospital for the above problem. 12/20: Patient continued to have significant cough and significant shortness of breath added Solu-Medrol and Tessalon Perle along with Pulmicort, patient has not seen pulmonary yet. Review his biopsy from this week looks like reactive cell with no cancer cells was found at this time this is still not final. Patient is not doing well overall long discussion with the about his condition his DO NOT RESUSCITATE as a CODE STATUS for now and it's all depend on the finding of his biopsy and final decision with pulmonary and oncology whether patient should be on aggressive management or in hospice care. 12/21: Patient is doing better decreased cough so far the biopsies not final so far patient pathology from the bronchial wash came back negative for cancer at the pathology for the biopsy done from the mass last week is not back yet. I spoke with the today give her an update further plan hopefully after the pathology is complete. 12/22: Patient's pathology report have been negative for malignancy but still high suspicion for malignancy. Patient is having more confusion but denies any complaints when asked. He states he is feeling okay. Patient has been continued on vancomycin and Zosyn, Solu-Medrol IV at 40 mg every 8 hours. Repeat blood work reveals Radha BC 20, hemoglobin 12.1, platelet count 295. Sodium 141, potassium 4.2, chloride 112, CO2 20, BUN 32 and creatinine 0.77. Blood sugar 98. Total bilirubin 0.5, AST 502, ALT 330, alkaline phosphatase 270. Family refused for bronchoscopy as well as MRI was declined. Discussed with patient's daughter via phone the patient prognosis is poor and at this time recommended hospice. Patient's daughter to come in and see her father. Ref erral has been placed with [facility] with possible discharge to [facility] home. 12/23: Patient continues to have confusion this probably worse than yesterday. Patient has increasing weakness and fatigue. Ultrasound the gallbladder revealed persistent small shadowing gallstones with perhaps mild gallbladder wall thickening. Heterogeneous hyperechoic appearance of the liver suggesting mild diffuse fatty infiltration and/or underlying hepatocellular disease. Patient remains afebrile, heart rate 56, blood pressure 155/83, pulse ox 97% on 6 L nasal cannula. No repeat lab work today. Discussed with patient's , Pat, patient's current condition and prognosis. She would like to proceed with [facility] and would prefer that the patient go to the [facility] home as she will not be able to take care of him at home. entry level account manager has been updated and contact has been made with [facility]. At this time, aggressive treatment will be stopped. Patient will be transferred to the [facility] floor without telemetry. Vancomycin will be discontinued. Objective - Vital Signs Vital signs: Vital Signs Temp 97 F L 12/24/19 03:31 Pulse 56 L 12/24/19 08:27 Resp 20 12/24/19 03:31 BP 155/83 12/24/19 03:31 Pulse Ox 97 12/24/19 03:31 Intake & Output 12/23/19 12/24/19 12/24/19 18:59 06:59 18:59 Intake Total 720 0 Balance 720 0 Weight 62.5 kg Intake: Oral 720 0 Other: Voiding Method Urinal Urinal Diaper Diaper # Voids 1 1 - Exam Review of Systems CONSTITUTIONAL: Well-developed no acute respiratory distress. Continued confusion and slight dyspnea. EYES: No icterus sclerae, no conjunctivitis. EARS, NOSE, MOUTH, THROAT, and FACE: No sore throat, lymphadenopathy, carotid bruits or deformity. RESPIRATORY: Significant cough wheezes and hemoptysis. CARDIOVASCULAR: No CP, Palpitation, PND, Orthopnea, or angina. GASTROINTESTINAL: No Abd pain, Nausea or vomiting, no Diarrhea or constipation, No GI Bleed, no distention or masses. GENITOURINARY: Negative for Hematuria or UTI, no kidney stones. INTEGUMENT/BREAST: Negative for any muscular injury with mild osteoarthritis.. HEMATOLOGIC/LYMPHATIC: Negative for bleed or purpura. MUSCULOSKELTAL: Negative for Myalgia or arthralgia. NEURLOGICAL: No LOC, Sz or syncope, blurred vision dizziness or abnormality.. Ge neralized fatigue abnormal balance and significant memory loss. BEHAVIORAL/PSYCH: Abnormal memory loss and dementia. ENDOCRINE: Negative. Physical Exam General Appearance: Alert, cooperative, mild distress, appears stated age. Neck HEENT: Supple, no lymphadenopathy, no thyroid enlargement, no carotid bruits. Lungs: Decreased breath sound bilaterally with rhonchi crackles mild inspiratory expiratory wheezes. Chest Wall: Decrease expansion with deep inspiration no tenderness and no deformity was found on exam, no costochondral pain or discomfort. Heart: Irregular rate and rhythm, S1, S2 positive history positive JVD with systolic murmur. Back: Symmetric, no curvature, ROM normal, no CVA tenderness. Abdomen: Soft, non-tender, bowel sounds active all four quadrants, no masses, no organomegaly. Extremities: Extremities atraumatic, no cyanosis or edema. Severe generalized weakness Pulses: 2+ and symmetric. Skin: Skin color, texture, tugor normal, no rashes or lesions. Neurologic: Alert oriented, oriented to self only with confusion cranial nerves II through XII intact, no motor deficit, no abnormal balance or gait. - Labs CBC & Chem 7: 12/23/19 07:31 12/23/19 07:31 Labs: Abnormal Lab Results - Last 24 Hours (Table) 12/23/19 12/23/19 12/23/19 Range/Units 07: 07:31 11:53 WBC 20.0 H (3.8-10.6) k/uL RBC 3.85 L (4.30-5.90) m/uL Hgb 12.1 L (13.0-17.5) gm/dL MCV 102.7 H (80.0-100.0) fL MCHC 30.7 L (31.0-37.0) g/dL Neutrophils # (Manual) 19.40 H (1.3-7.7) k/uL Lymphocytes # (Manual) 0.20 L (1.0-4.8) k/uL Myelocytes # (Manual) 0.20 H (0) k/uL Nucleated RBCs 1 H (0-0) /100 WBC Chloride 112 H (98-107) mmol/L Carbon Dioxide 20 L (22-30) mmol/L BUN 32 H (9-20) mg/dL POC Glucose (mg/dL) 170 H (75-99) mg/dL Calcium 8.0 L (8.4-10.2) mg/dL AST 502 H (17-59) U/L ALT 330 H (4-49) U/L Alkaline Phosphatase 270 H (38-126) U/L Total Protein 5.4 L (6.3-8.2) g/dL Albumin 2.5 L (3.5-5.0) g/dL 12/23/19 12/23/19 12/24/19 Range/Units 16:42 20:44 06:01 WBC (3.8-10.6) k/uL RBC (4.30-5.90) m/uL Hgb (13.0-17.5) gm/dL MCV (80.0-100.0) fL MCHC (31.0-37.0) g/dL Neutrophils # (Manual) (1.3-7.7) k/uL Lymphocytes # (Manual) (1.0-4.8) k/uL Myelocytes # (Manual) (0) k/uL Nucleated RBCs (0-0) /100 WBC Chloride (98-107) mmol/L Carbon Dioxide (22-30) mmol/L BUN (9-20) mg/dL POC Glucose (mg/dL) 115 H 127 H 123 H (75-99) mg/dL Calcium (8.4-10.2) mg/dL AST (17-59) U/L ALT (4-49) U/L Alkaline Phosphatase (38-126) U/L Total Protein (6.3-8.2) g/dL Albumin (3.5-5.0) g/dL Microbiology - Last 24 Hours (Table) 12/20/19 13:29 Blood Culture - Preliminary Blood No Growth after 72 hours Assessment and Plan Plan: 1 aspiration pneumonia and most likely gram-negative pneumonia: Patient will be hospitalized started vancomycin and Zosyn consult pulmonary sputum for Gram stain and culture blood culture be done repeat chest x-ray and CAT scan in the next few days. There is other possibility with this which is obstructive pneumonia specially related to the cancer and the stenosis from the tumor growth on the bronchial tube. 2 fever and chills and sepsis most likely from aspiration pneumonia continue current antibiotic awaiting for final blood culture. Patient has been treated for obstructive pneumonitis and he responded very well to treatment. 3 metabolic encephalopathy secondary to pneumonia and underlying dementia. 4 recent history of lung mass post bronchoscopy and biopsy, bronchial wash pathology came back negative but remains with high suspicion for lung cancer. 5 history of bladder cancer post the treatment and management was seen urology regular basis had multiple cystoscopy and because to be in remission at this point. 6 abdominal aortic aneurysm: Post stent graft repair done successfully has been doing well. 7 abnormal liver function tests not a clear etiology most likely possible metastasis. 8 dementia and worsening symptoms: Has been on Namenda and Aricept resume both medication. 9 hypertension: Blood pressure has been lobe patient has been off medication at this point. 10 BPH: Watch for any urinary retention. 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 CODE STATUS: DO NOT RESUSCITATE. Discharge plan: To be determined. Most likely [facility] Home Impression and plan of care have been directed as dictated by the signing physician. Sara Mcdonough nurse practitioner acting as scribe for signing physician.
[2019-12-24] MEDS ORDERED: MORPHINE CONC SOLN 10mg/0.5mL ORAL SYRG SL SCH (12:15)
[2019-12-24] MEDS ORDERED: LORazepam ORAL CONC 60 MG/30 ML BOTTLE SL SCH (13:00)
--- NOTE | 2019-12-24 14:00 | P.PN ---
Subjective Progress Note Date: 12/24/19 Principal diagnosis: acute hypoxic respiratory failure secondary to large right upper lobe and right middle lobe mass This is a pleasant 79-year-old gentleman with a history of dementia, hyperlipidemia, hypertension, coronary myxoma status post excision, bladder cancer with previous chemotherapy. The patient was recently found to have a right middle lobe bronchus obstruction and had undergone a navigational bronchoscopy with biopsies on 12/16/[address] Chau. Bronchial washings, brushings and FNA were all negative for pathology. Transbronchial biopsies are still pending. Yesterday the patient had increasing shortness of breath, cough, blood-streaked sputum, increased weakness and difficulty standing per his . She brought him to the emergency room for the same. Chest x-ray revealed worsening right-sided opacity. CT angiogram ruled out pulmonary embolism. There is tracheal and bronchial debris could be related to hemoptysis status post biopsy or aspiration. There is a large right upper lobe and right middle lobe masslike consolidation which is increased since 12/16/2019 suggestive of pulmonary hemorrhage or postprocedure infection. He is currently afebrile though did have a T-max of 100.5. White count 24.0. Hemoglobin 11.3. D-dimer 3.63. Sodium 137. Potassium 4.3. Creatinine 0.82. AST 119. ALT 173. ProBNP 2310. He is seen today in consultation on the selective care unit. He is currently resting fairly comfortably in bed. Awake and alert in no acute distress. He's maintaining O2 saturations in the mid 90s on 4 L/m per nasal c annula. She's afebrile. Hemodynamically stable. He's been initiated on vancomycin and Zosyn. IV Solu-Medrol and bronchodilators. Heparin for DVT prophylaxis. On 12/22/2019 patient seen in follow-up on selective care unit, he is resting comfortably in bed, currently on 6 L of oxygen the pulse ox of 94%, afebrile, in no acute distress, awake and alert. He states his cough is improving, his br eathing is comfortable. his lung biopsy results are still pending at this time, cytology of the peritracheal lymph node aspirate showed no cytologically malignant cells, and BAL of the right middle lobe and right upper lobe was negative. electromagnetic navigation biopsy results pending. remains on Zosyn and vancomycin, his been afebrile, has not been able to produce a sputum sample. today's labs show white blood cell count is improved, and down to 20.2, hemoglobin is 11.3, sodium is 137, potassium is 4.3, chloride is 109, CO2 is 20, BUN is 24 and creatinine 0.70. On 12/23/2019 patient seen in follow-up on selective care unit, used to be confused on today's exam, but he removed his oxygen, which was placed back on. but no signs of any respiratory distress, earlier he was sat 92% on 6 L, his been afebrile, occasional cough, and shortness of breath with exertion,remains on empiric antibiotics in the form of Zosyn and vancomycin. Has not been able to produce a sputum sample. Follow-up chest x-ray today shows persistent right midlung masslike consolidation which is felt to be fairly stable, and a new right greater than left bibasilar acute infiltrate and/or atelectasis and small to tiny bilateral pleural effusions. his lung biopsy results are in and showed organizing pneumonia and fragments of inflamed fibrous tissue with fibroplasia and fibrin, nondiagnostic of malignancy. today's labs have been reviewed, showing white blood cell count of 20, hemoglobin of 12.1, sodium is 141, potassium 4.2, chloride is 112, CO2 is 20, BUN is 32 and creatinine 0.7, liver transaminases noted to be increased on today's labs, with AST up to 502, ALT of 330, and alkaline phosphatase is 270. Coronanovirus PCR was negative On 12/16/2019 patient seen in follow-up on selective care unit. Yesterday we scheduled the patient for bronchoscopy with BAL for findings of persistent right midlung masslike consolidation, and previously done electromagnetic transbronchial biopsy was nondiagnostic, and the results showed organizing pneumonia. Patient continues on antibiotics in the form of Zosyn and vancomycin. Still on high flow oxygen. After we aborted the patient reported a bronchoscopy we were told that his family with his to proceed with palliative care hospice enrollment. They declined the procedure. The patient's felt that she did not want any more testing to be done, and decide to take measures to make patient comfortable at this time. Today at the time of our evaluation patient is lethargic, she is remains on high flow oxygen currently 6 L pulse ox is 97%, afebrile, hemodynamically stable. He remains on breathing treatments, IV steroids and antibiotics. He has been confused, and lethargic. Were told that hospice has been consulted, and patient is expected to go into palliative care with hospice this afternoon. Objective - Vital Signs Vital signs: Vital Signs Temp 97 F L 12/24/19 03:31 Pulse 60 12/24/19 08:45 Resp 20 12/24/19 03:31 BP 155/83 12/24/19 03:31 Pulse Ox 97 12/24/19 03:31 Intake & Output 12/23/19 12/24/19 12/24/19 18:59 06:59 18:59 Intake Total 720 0 Balance 720 0 Weight 62.5 kg 62.5 kg Intake: Oral 720 0 Other: Voiding Method Urinal Urinal Diaper Diaper # Voids 1 1 1 - Exam GENERAL EXAM: Alert, very pleasant, 79-year-old white male, on 6 L of oxygen with a pulse ox of 97% comfortable in no apparent distress. HEAD: Normocephalic/atraumatic. EYES: Normal reaction of pupils, equal size. Conjunctiva pink, sclera white. NOSE: Clear with pink turbinates. THROAT: No erythema or exudates. NECK: No masses, no JVD, no thyroid enlargement, no adenopathy. CHEST: No chest wall deformity. Symmetrical expansion. LUNGS: Equal air entry with pleural rub, bilaterally, right greater than left CVS: Regular rate and rhythm, normal S1 and S2, no gallops, no murmurs, no rubs ABDOMEN: Soft, nontender. No hepatosplenomegaly, normal bowel sounds, no guarding or rigidity. EXTREMITIES: No clubbing, no edema, no cyanosis, 2+ pulses and upper and lower extremities. MUSCULOSKELETAL: Muscle strength and tone normal. SPINE: No scoliosis or deformity SKIN: No rashes CENTRAL NERVOUS SYSTEM: Alert and oriented -3. No focal deficits, tone is normal in all 4 extremities. PSYCHIATRIC: Alert and oriented -3. Appropriate affect. Intact judgment and insight. - Labs CBC & Chem 7: 12/23/19 07:31 12/23/19 07:31 Labs: Abnormal Lab Results - Last 24 Hours (Table) 05/27/20 05/27/20 05/28/20 Range/Units 16:42 20:44 06:01 POC Glucose (mg/dL) 115 H 127 H 123 H (75-99) mg/dL Microbiology - Last 24 Hours (Table) 12/20/19 13:29 Blood Culture - Preliminary Blood No Growth after 72 hours Assessment and Plan Plan: 1 Acute hypoxic respiratory failure secondary to increasing large right upper lobe and right middle lobe masslike consolidation. Bronchoscopy with biopsies on 12/16/2019 with pathology results nondiagnostic for malignancy, but did show organizing pneumonia 2 Hemoptysis secondary to tracheal and bronchial debris post biopsy blood products versus aspiration. 3 Febrile illness secondary to above 4 History of bladder cancer status post chemotherapy 5 Dementia 6 Hyperlipidemia 7 Hypertension 8 Osteoarthritis 9 Former smoker 10 Previous cervical surgery with limited range of motion in the neck 11 elevated liver transaminases, of unclear etiology, Plan: Patient's family decided to take measures to make the patient comfortable at this time, they declined any further testing, they declined bronchoscopy with BAL. They expressed the wish to proceed with hospice enrollment. Hospice has been consulted, and patient is expected to be discharged into hospice care this afternoon. I performed a history & physical examination of the patient and discussed their management with my nurse practitioner, Abida Calvillo. I reviewed the nurse practitioner's note and agree with the documented findings and plan of care. Lung sounds are positive for diminished breath sounds. The findings and the impression was discussed with the patient. I attest to the documentation by the nurse practitioner. Time with Patient: Less than 30
[2019-12-24] MEDS ORDERED: MORPHINE CONC SOLN 10mg/0.5mL ORAL SYRG SL PRN (15:28)
[2019-12-24] MEDS ORDERED: LORazepam ORAL CONC 60 MG/30 ML BOTTLE SL PRN (15:28)
[2019-12-24 20:30] LABS: Glucose,Whole Blood 117 mg/dL (75-99)
[2019-12-25 00:51] VITALS: RESP 18
[2019-12-25] MEDS ORDERED: VANCOMYCIN TROUGH DUE 1 EACH MISC MISCELLANE ONE (05:00)
[2019-12-25 06:09] LABS: African American GFR (CKD) >90 (>60 ml/min/1.73 sqM); Non-African American GFR(CKD) 85 (>60 ml/min/1.73 sqM)
[2019-12-25] MEDS: BUDESONIDE 0.5 MG/2 ML NEBU INHALATION SCH (07:38)
[2019-12-25 09:09] VITALS: BP 171/82; PULSE 54; TEMP 98
[2019-12-25] MEDS: HEPARIN SODIUM,PORCINE 5,000 UNIT/ML 1 ML VIAL SQ SCH (10:06)
--- NOTE | 2019-12-25 12:09 | P.PN ---
Subjective Progress Note Date: 12/25/19 Principal diagnosis: Lung Mass, Fevers Confused this am. Patients family have confirmed no further testing and plan for comfort measures as goal only. Objective - Vital Signs Vital signs: Vital Signs Temp 98.0 F 12/25/19 07:00 Pulse 57 L 12/25/19 07:47 Resp 18 12/25/19 07:00 BP 171/82 12/25/19 07:00 Pulse Ox 93 L 12/25/19 07:00 Intake & Output 12/24/19 12/25/19 12/25/19 18:59 06:59 18:59 Intake Total 125 Balance 125 Weight 62.5 kg 54.5 kg Intake: Oral 125 Other: Voiding Method Urinal Urinal Diaper Diaper # Voids 3 2 - Exam Gen: NAD, Awak, poor historian Head: NCNT Neck: Supple Lungs: Crackles at bases, mild increased effort Heart: RRR Abdomen: S/ND Ext: no rash Mood: confused - Labs CBC & Chem 7: 12/23/19 07:31 12/25/19 05:34 Labs: Abnormal Lab Results - Last 24 Hours (Table) 12/24/19 Range/Units 20:28 POC Glucose (mg/dL) 117 H (75-99) mg/dL Microbiology - Last 24 Hours (Table) 12/20/19 13:29 Blood Culture - Preliminary Blood No Growth after 96 hours Assessment and Plan Plan: Assessment and Plan Lung mass still: Under evaluation status post bronchoscopy with biopsy pending at this time. - MRI brain for full evaluation has been refused by per nursing - Further workup to assess for other area of concern. Biopsy resulted as negative, suspicion is still a concern and if family chooses so recommend further evaluation Aspiration pneumonia with CT findings, sepsis, fever shortness of breath, hemoptysis: Afebrile 24 hours - Pulmonary medicine - Antibiotics Altered mental sensorium with underlying dementia. Elevated liver enzymes with suspected metastatic disease. H/O bladder cancer: Early stage status post surgical management and as regular cystoscopies. As per the notes has been in remission. 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 Normocytic Anemia: Hemoptysis improved - Monitor CBC Plan: Family has decided on no further treatments or diagnsostics. Comfort measures only at this time. Physician Attest: I have completed the full history and physcial and agree with above dictation, dictated as a scribe
[2019-12-25] MEDS: BENZONATATE 100 MG CAP PO SCH ×2 (13:05→16:47)
[2019-12-25] MEDS: MEMANTINE 10 MG TAB PO SCH (13:06)
[2019-12-25] MEDS: FAMOTIDINE 20 MG TAB PO SCH (13:06)
[2019-12-25] MEDS: DONEPEZIL 10 MG TAB PO SCH (13:06)
--- NOTE | 2019-12-25 13:34 | P.DS ---
Providers Date of admission: 12/20/19 15:21 Expected date of discharge: 12/24/19 Attending physician: Esvin Ramires Consults: 12/20/19 15:22 Consult Physician Urgent Consulting Provider: David Ryan Consult Reason/Comments: acute respiratory insuff, s/p lung biopsy Do you want consulting provider notified?: Yes 12/20/19 21:19 Consult Physician Routine Consulting Provider: Alok Pichardo Consult Reason/Comments: lung ca Do you want consulting provider notified?: Yes Primary care physician: [facility] Course: 79-year-old male one of my office patient with past medical history of bladder cancer with resection, history of hypertension hyperlipidemia and memory impairment who has been seen Dr. Pichardo oncology and chest x-ray over a month ago showed slight pneumonia CAT scan of the chest showed large mass in the right upper and middle area of the lung patient was diagnosed with possible lung cancer was referred to Dr. Chau and had bronchoscopy this past week results still pending the patient continued to have hemoptysis all along. Patient developed to have severe fatigue tiredness and generalized weakness not been able template and walk mild altered mental status with worsening cough worsening shortness of breath his cough was impenetrable ended up calling 911 ended up having hypoxia with temperature of 102 over to the emergency department at [facility] where was seen and evaluated found to have mass in the right side d-dimer was elevated CAT scan was performed and showed mass in the right upper and middle lobe with a debridement most likely from aspiration pneumonia. Patient white blood cell was quite bit elevated and had significant abnormal liver function test. Was started on gram-negative coverage was giving Zosyn and Levaquin oxygen was started will consult pulmonary and oncology and admit patient to the hospital for the above problem. 12/20: Patient continued to have significant cough and significant shortness of breath added Solu-Medrol and Tessalon Perle along with Pulmicort, patient has not seen pulmonary yet. Review his biopsy from this week looks like reactive cell with no cancer cells was found at this time this is still not final. Patient is not doing well overall long discussion with the about his condition his DO NOT RESUSCITATE as a CODE STATUS for now and it's all depend on the finding of his biopsy and final decision with pulmonary and oncology whether patient should be on aggressive management or in hospice care. 12/21: Patient is doing better decreased cough so far the biopsies not final so far patient pathology from the bronchial wash came back negative for cancer at the pathology for the biopsy done from the mass last week is not back yet. I spoke with the today give her an update further plan hopefully after the pathology is complete. 12/22: Patient's pathology report have been negative for malignancy but still high suspicion for malignancy. Patient is having more confusion but denies any complaints when asked. He states he is feeling okay. Patient has been continued on vancomycin and Zosyn, Solu-Medrol IV at 40 mg every 8 hours. Repeat blood work reveals Radha BC 20, hemoglobin 12.1, platelet count 295. Sodium 141, potassium 4.2, chloride 112, CO2 20, BUN 32 and creatinine 0.77. Blood sugar 98. Total bilirubin 0.5, AST 502, ALT 330, alkaline phosphatase 270. Family refused for bronchoscopy as well as MRI was declined. Discussed with patient's daughter via phone the patient prognosis is poor and at this time recommended hospice. Patient's daughter to come in and see her father. Referral has been placed with [facility] with possible discharge to [facility] home. 12/23: Patient continues to have confusion this probably worse than yesterday. Patient has increasing weakness and fatigue. Ultrasound the gallbladder revealed persistent small shadowing gallstones with perhaps mild gallbladder wall thickening. Heterogeneous hyperechoic appearance of the liver suggesting mild diffuse fatty infiltration and/or underlying hepatocellular disease. Patient remains afebrile, heart rate 56, blood pressure 155/83, pulse ox 97% on 6 L nasal cannula. No repeat lab work today. Discussed with patient's , Mally, patient's current condition and prognosis. She would like to proceed with [facility] and would prefer that the patient go to the [facility] home as she will not be able to take care of him at home. marketing compliance manager has been updated and contact has been made with [facility]. At this time, aggressive treatment will be stopped. Patient will be transferred to the [facility] floor without telemetry. Vancomycin will be discontinued. 12/24: Patient is awake, oriented to person only, unable to follow commands. Patient is very confused. Patient's has contacted the residential case manager and plan is for the patient to go home with hospice. Arrangements will be made for this to happen today. Patient will be discharged home today in stable condition. Discharge diagnoses: 1 aspiration pneumonia and most likely gram-negative pneumonia 2 fever and chills and sepsis most likely from aspiration pneumonia 3 metabolic encephalopathy secondary to pneumonia and underlying dementia. 4 recent history of lung mass post bronchoscopy and biopsy came back negative but remains with high suspicion for lung cancer. 5 history of bladder cancer post the treatment 6 abdominal aortic aneurysm: Post stent graft repair done successfully 7 abnormal liver function tests not a clear etiology most likely possible metastasis. 8 dementia 9 hypertension 10 BPH 11 history of myxoma of the heart post surgery 5 years ago Discharge plan: Home with [facility] Impression and plan of care have been directed as dictated by the signing physician. Sara Mcdonough nurse practitioner acting as scribe for signing physician. Patient Condition at Discharge: Stable Plan - Discharge Summary Discharge Rx Participant: No New Discharge Prescriptions: Continue Memantine [Namenda] 10 mg PO BID Donepezil [Aricept] 10 mg PO DAILY Discharge Medication List Donepezil [Aricept] 10 mg PO DAILY 12/20/19 [History] Memantine [Namenda] 10 mg PO BID 12/20/19 [History] Follow up Appointment(s)/Referral(s): Esvin Ramires MD [Primary Care Provider] - 1-2 days Discharge Disposition: HOME WITH HOSPICE
--- NOTE | 2019-12-25 14:45 | P.PN ---
Subjective Progress Note Date: 12/25/19 Principal diagnosis: acute hypoxic respiratory failure secondary to large right upper lobe and right middle lobe mass This is a pleasant 79-year-old gentleman with a history of dementia, hyperlipidemia, hypertension, coronary myxoma status post excision, bladder cancer with previous chemotherapy. The patient was recently found to have a right middle lobe bronchus obstruction and had undergone a navigational bronchoscopy with biopsies on 12/16/[address] Chau. Bronchial washings, brushings and FNA were all negative for pathology. Transbronchial biopsies are still pending. Yesterday the patient had increasing shortness of breath, cough, blood-streaked sputum, increased weakness and difficulty standing per his . She brought him to the emergency room for the same. Chest x-ray revealed worsening right-sided opacity. CT angiogram ruled out pulmonary embolism. There is tracheal and bronchial debris could be related to hemoptysis status post biopsy or aspiration. There is a large right upper lobe and right middle lobe masslike consolidation which is increased since 12/16/2019 suggestive of pulmonary hemorrhage or postprocedure infection. He is currently afebrile though did have a T-max of 100.5. White count 24.0. Hemoglobin 11.3. D-dimer 3.63. Sodium 137. Potassium 4.3. Creatinine 0.82. AST 119. ALT 173. ProBNP 2310. He is seen today in consultation on the selective care unit. He is currently resting fairly comfortably in bed. Awake and alert in no acute distress. He's maintaining O2 saturations in the mid 90s on 4 L/m per nasal c annula. She's afebrile. Hemodynamically stable. He's been initiated on vancomycin and Zosyn. IV Solu-Medrol and bronchodilators. Heparin for DVT prophylaxis. On 12/22/2019 patient seen in follow-up on selective care unit, he is resting comfortably in bed, currently on 6 L of oxygen the pulse ox of 94%, afebrile, in no acute distress, awake and alert. He states his cough is improving, his br eathing is comfortable. his lung biopsy results are still pending at this time, cytology of the peritracheal lymph node aspirate showed no cytologically malignant cells, and BAL of the right middle lobe and right upper lobe was negative. electromagnetic navigation biopsy results pending. remains on Zosyn and vancomycin, his been afebrile, has not been able to produce a sputum sample. today's labs show white blood cell count is improved, and down to 20.2, hemoglobin is 11.3, sodium is 137, potassium is 4.3, chloride is 109, CO2 is 20, BUN is 24 and creatinine 0.70. On 12/23/2019 patient seen in follow-up on selective care unit, used to be confused on today's exam, but he removed his oxygen, which was placed back on. but no signs of any respiratory distress, earlier he was sat 92% on 6 L, his been afebrile, occasional cough, and shortness of breath with exertion,remains on empiric antibiotics in the form of Zosyn and vancomycin. Has not been able to produce a sputum sample. Follow-up chest x-ray today shows persistent right midlung masslike consolidation which is felt to be fairly stable, and a new right greater than left bibasilar acute infiltrate and/or atelectasis and small to tiny bilateral pleural effusions. his lung biopsy results are in and showed organizing pneumonia and fragments of inflamed fibrous tissue with fibroplasia and fibrin, nondiagnostic of malignancy. today's labs have been reviewed, showing white blood cell count of 20, hemoglobin of 12.1, sodium is 141, potassium 4.2, chloride is 112, CO2 is 20, BUN is 32 and creatinine 0.7, liver transaminases noted to be increased on today's labs, with AST up to 502, ALT of 330, and alkaline phosphatase is 270. Coronanovirus PCR was negative On 12/24/2019 patient seen in follow-up on selective care unit. Yesterday we scheduled the patient for bronchoscopy with BAL for findings of persistent right midlung masslike consolidation, and previously done electromagnetic transbronchial biopsy was nondiagnostic, and the results showed organizing pneumonia. Patient continues on antibiotics in the form of Zosyn and vancomycin. Still on high flow oxygen. After we aborted the patient reported a bronchoscopy we were told that his family with his to proceed with palliative care hospice enrollment. They declined the procedure. The patient's felt that she did not want any more testing to be done, and decide to take measures to make patient comfortable at this time. Today at the time of our evaluation patient is lethargic, she is remains on high flow oxygen currently 6 L pulse ox is 97%, afebrile, hemodynamically stable. He remains on breathing treatments, IV steroids and antibiotics. He has been confused, and lethargic. Were told that hospice has been consulted, and patient is expected to go into palliative care with hospice this afternoon. On 12/25/2019 patient seen in follow-up on selective care unit, he is quite lethargic, but does arouse to verbal stimuli and he is able to open eyes and speak. he is very weak, in the last few days he seems to have significantly declined overall, he remains on high flow nasal cannula oxygen at 6 L and his pulse ox is 93%, his been afebrile, lung sounds are diminished, without significant rhonchi or wheezing. Family decided to not pursue any more diagnostic procedures and proceed with palliative care, hospice enrollment. Patient was treated with antibiotics, which are now discontinued as the patient has been enrolled in hospice, he is receiving IV morphine and Ativan, seems quite comfortable. Daughter is at the bedside, and decision has been made to transfer the patient home under the hospice care. Objective - Vital Signs Vital signs: Vital Signs Temp 98.0 F 12/25/19 07:00 Pulse 57 L 12/25/19 07:47 Resp 18 12/25/19 07:00 BP 171/82 12/25/19 07:00 Pulse Ox 93 L 12/25/19 07:00 Intake & Output 12/24/19 12/25/19 12/25/19 18:59 06:59 18:59 Intake Total 125 120 Balance 125 120 Weight 62.5 kg 54.5 kg Intake: IV 120 0.9 120 Oral 125 Other: Voiding Method Urinal Urinal Diaper Diaper # Voids 3 2 - Exam GENERAL EXAM: Alert, very pleasant, 79-year-old white male, on 6 L of oxygen with a pulse ox of 97% comfortable in no apparent distress. HEAD: Normocephalic/atraumatic. EYES: Normal reaction of pupils, equal size. Conjunctiva pink, sclera white. NOSE: Clear with pink turbinates. THROAT: No erythema or exudates. NECK: No masses, no JVD, no thyroid enlargement, no adenopathy. CHEST: No chest wall deformity. Symmetrical expansion. LUNGS: Equal air entry with pleural rub, bilaterally, right greater than left CVS: Regular rate and rhythm, normal S1 and S2, no gallops, no murmurs, no rubs ABDOMEN: Soft, nontender. No hepatosplenomegaly, normal bowel sounds, no guarding or rigidity. EXTREMITIES: No clubbing, no edema, no cyanosis, 2+ pulses and upper and lower extremities. MUSCULOSKELETAL: Muscle strength and tone normal. SPINE: No scoliosis or deformity SKIN: No rashes CENTRAL NERVOUS SYSTEM: Alert and oriented -3. No focal deficits, tone is normal in all 4 extremities. PSYCHIATRIC: Alert and oriented -3. Appropriate affect. Intact judgment and insight. - Labs CBC & Chem 7: 12/23/19 07:31 12/25/19 05:34 Labs: Abnormal Lab Results - Last 24 Hours (Table) 12/24/19 Range/Units 20:28 POC Glucose (mg/dL) 117 H (75-99) mg/dL Microbiology - Last 24 Hours (Table) 12/20/19 13:29 Blood Culture - Preliminary Blood No Growth after 96 hours Assessment and Plan Plan: 1 Acute hypoxic respiratory failure secondary to increasing large right upper lobe and right middle lobe masslike consolidation. Bronchoscopy with biopsies on 12/16/2019 with pathology results nondiagnostic for malignancy, but did show organizing pneumonia 2 Hemoptysis secondary to tracheal and bronchial debris post biopsy blood products versus aspiration. 3 Febrile illness secondary to above 4 History of bladder cancer status post chemotherapy 5 Dementia 6 Hyperlipidemia 7 Hypertension 8 Osteoarthritis 9 Former smoker 10 Previous cervical surgery with limited range of motion in the neck 11 elevated liver transaminases, of unclear etiology, ultrasound of gallbladder showed small shadowing gallstones with perhaps mild gallbladder wall thickening, and mild diffuse fatty infiltration and/or underlying hepatocellular disease. Plan: Patient has been started on palliative care, he seems quite comfortable, resting in bed, his daughter is at the bedside. Antibiotics have been discontinued, patient is receiving morphine and Ativan, for discomfort and agitation, no evidence of any distress right now, he wakes up and answers some simple questions, arrangements are being made to transfer the patient to his home this afternoon under the hospice care. I performed a history & physical examination of the patient and discussed their management with my nurse practitioner, Abida Calvillo. I reviewed the nurse practitioner's note and agree with the documented findings and plan of care. Lung sounds are positive for diminished breath sounds. The findings and the impression was discussed with the patient. I attest to the documentation by the nurse practitioner. Time with Patient: Less than 30
--- NOTE | 2019-12-30 01:36 | CDI ---
Documentation Clarification Form Date: 12/30/2019 From: Jeffrey Luna Phone: If you have a question about this query, please contact Leah Becker, Testing Director at [phone] between 8am and 5pm. Admit Date: 12/20/2019 Discharge Date: 12/25/2019 Patient Name: Ramon Pelayo Visit Number: [id number] ATTENTION: The Clinical Documentation Specialists (CDI) and [facility] Coding Staff appreciate your assistance in clarifying documentation. Please respond to the clarification below the line at the bottom and electronically sign. The CDI & [facility] Coding staff will review the response and follow-up if needed. Please note: Queries are made part of the Legal Health Record. If you have any questions, please contact the author of this message via ITS. Dear Esvin Larios., Aspiration pneumonia and most likely gram-negative pneumonia is documented in the DS. Patients Admitting Diagnosis: Aspiration pneumonia, Sepsis Procedure performed: Bronchoscopy performed on 12/15 History/Risk Factors: Pneumonia, hemoptysis, Metabolic encephalopathy, sepsis Treatment: Conservative management 12/23 Dr Tulio Calvo report stated "Tracheal and bronchial debris secondary related hemoptysis, postbiopsy blood products respiration.Large right upper lobe and right middle lobe masslike toleration for which recent bronchoscopy was performed and has increased in interval suggesting a degree of pulmonary hemorrhage and/or postprocedural infection. In order to accurately reflect this patients severity of illness, please clarify if Aspiration pneumonia/ Gram negative pneumonia the result of the surgical procedure(Bronchoscopy)? Yes ?No ?Other, please specify ?Unable to determine gram neg pneumonia not due to bronchoscopy MTDD
== END 2019-12-25 17:50 | disposition hospice, home (50) | DRG 871 ==
LOC: EC 12:24 → 3SCARD 15:21
PROVIDERS: ADMIT Internal Medicine Geriatric Medicine; ATTEND Internal Medicine Geriatric Medicine
DX: A41.89 Other specified sepsis (principal); J69.0 Pneumonitis due to inhalation of food and vomit; J96.01 Acute respiratory failure with hypoxia; J15.6 Pneumonia due to other Gram-negative bacteria; G93.41 Metabolic encephalopathy; R04.2 Hemoptysis; C34.90 Malignant neoplasm of unspecified part of unspecified bronchus or lung; E78.5 Hyperlipidemia, unspecified; Z20.828 Contact with and (suspected) exposure to other viral communicable diseases; Z51.5 Encounter for palliative care; Z66 Do not resuscitate; I10 Essential (primary) hypertension; I71.4 Abdominal aortic aneurysm, without rupture; F03.90 Unspecified dementia, unspecified severity, without behavioral disturbance, psychotic disturbance, mood disturbance, and anxiety; M19.90 Unspecified osteoarthritis, unspecified site; N40.0 Benign prostatic hyperplasia without lower urinary tract symptoms; K80.20 Calculus of gallbladder without cholecystitis without obstruction; Z79.899 Other long term (current) drug therapy; Z85.51 Personal history of malignant neoplasm of bladder; Z91.09 Other allergy status, other than to drugs and biological substances; Z87.01 Personal history of pneumonia (recurrent); Z92.21 Personal history of antineoplastic chemotherapy; Z98.890 Other specified postprocedural states; Z87.891 Personal history of nicotine dependence; Z82.49 Family history of ischemic heart disease and other diseases of the circulatory system; Z80.8 Family history of malignant neoplasm of other organs or systems
CPT/HCPCS: 36415; 71045; 71275; 76705; 80048; 80053; 80076; 80202; 82565; 83605; 83735; 83880; 84484; 85025; 85027; 85379; 85610; 85730; 87040; 87635; 93005; 94640; 96365; 96367; 99285